=== PATIENT | female | born 1950 | race Caucasian/White ===

== ENCOUNTER → 2017-10-08 | Outpatient (CLI) | payer MEDICARE ==
--- NOTE | 2017-10-10 17:35 | ECHOF ---
Referral Reason:Edema R60.9 Shortness of Breath R06.02 MEASUREMENTS -------- HEIGHT: 160.0 cm WEIGHT: 145.1 kg BP: IVSd: 1.4 cm (0.6 - 1.1) LVIDd: 3.5 cm (3.9 - 5.3) LVPWd: 1.4 cm (0.6 - 1.1) IVSs: 1.8 cm LVIDs: 2.5 cm LVPWs: 1.5 cm Ao Diam: 2.8 cm (2.0 - 3.7) AV Cusp: 1.7 cm (1.5 - 2.6) LA Diam: 2.7 cm (2.7 - 3.8) MV EXCURSION: 17.961 mm (> 18.000) MV EF SLOPE: 111 mm/s (70 - 150) EPSS: 0.4 cm MV E Jose: 0.48 m/s MV DecT: 153 ms MV A Jose: 0.72 m/s MV E/A Ratio: 0.66 FINDINGS -------- Sinus rhythm. This was a technically difficult study with suboptimal views. The left ventricular size is normal. There is mild concentric left ventricular hypertrophy. Overa ll left ventricular systolic function is normal with, an EF between 55 - 60 %. The right ventricle is normal in size and function. The left atrium is normal in size. The right atrium is normal in size. 1.5mg of Definity was utilized for enhancement of images The aortic valve was not well visualized. The mitral valve was not well visualized. There is trace mitral regurgitation. Trace tricuspid regurgitation present. The right ventricular systolic pressure, as measured by Dopp ler, is {RVSP}. The pulmonic valve was not well visualized. The aortic root size is normal. There is no pericardial effusion. CONCLUSIONS -------- 1. Sinus rhythm. 2. This was a technically difficult study with suboptimal views. 3. The left ventricular size is normal. 4. There is mild concentric left ventricular hypertrophy. 5. Overall left ventricular systolic function is normal with, an EF between 55 - 60 %. 6. The left atrium is normal in size. 7. Lumason used 8. The aortic valve was not well visualized. 9. There is trace mitral regurgitation. 10. Trace tricuspid regurgitation present. 11. The right ventricular systolic pressure, as measured by Doppler, is {RVSP}. 12. The pulmonic valve was not well visualized. 13. The aortic root size is normal. 14. There is no pericardial effusion. FILTER CLEANER: Stephie Goodwin RDCS
== END | disposition home or self-care (01) ==
LOC: RADECHMAIN 14:36
PROVIDERS: ATTEND Family Medicine
DX: I51.7 Cardiomegaly (principal)
CPT/HCPCS: C8929; Q9950; 93306

== ENCOUNTER 2020-03-17 21:23 | Emergency (ER) | payer MEDICARE ==
[2020-03-17 21:34] VITALS: RESP 22; TEMP 98.1
[2020-03-17] MEDS ORDERED: SODIUM CHLORIDE 0.9% 1,000 ML IV STA (21:42)
[2020-03-17] MEDS ORDERED: KETOROLAC 30 MG/ML 1 ML VIAL IVP STA (21:42)
[2020-03-17] MEDS ORDERED: ONDANSETRON 4 MG/2 ML VIAL IVP STA (21:42)
--- NOTE | 2020-03-17 21:43 | ED ---
Abdominal Pain HPI - General Chief Complaint: Abdominal Pain Stated Complaint: Right flank pain Time Seen by Provider: 03/17/20 21:27 Source: patient, EMS Mode of arrival: EMS Limitations: physical limitation - History of Present Illness Initial Comments: Patient is a 69-year-old female presenting to emergency with a chief complaint of flank pain. Patient reports this was a sudden onset of bilateral flank pain that started early this point. Patient states by 10 AM, the pain was only localized to the right flank region. Patient reports the pain is sharp in nature and constant. She denies a history of kidney stones. She does report nausea with multiple episodes of nonbloody, nonbilious vomiting. She denies any night sweats or chills. Denies any cough chest pain or shortness of breath. She denies any hematuria, hematochezia or melena. She does report decreased urine output but states that is due to the constant vomiting today. - Related Data Home Medications Medication Instructions Recorded Confirmed No Known Home Medications 03/17/20 03/17/20 Allergies Allergy/AdvReac Type Severity Reaction Status Date / Time No Known Allergies Allergy Verified 03/17/20 23:00 Review of Systems ROS Statement: Those systems with pertinent positive or pertinent negative responses have been documented in the HPI. ROS Other: All systems not noted in ROS Statement are negative. Past Medical History Past Medical History: Hypertension Additional Past Medical History / Comment(s): sciatic nerve History of Any Multi-Drug Resistant Organisms: None Reported Past Surgical History: Cholecystectomy Past Psychological History: No Psychological Hx Reported Smoking Status: Never smoker Past Alcohol Use History: None Reported Past Drug Use History: None Reported General Exam Limitations: physical limitation General appearance: alert, in no apparent distress, obese Head exam: Present: atraumatic, normocephalic, normal inspection Eye exam: Present: normal appearance, PERRL, EOMI Pupils: Present: normal accommodation ENT exam: Present: normal exam, normal oropharynx, mucous membranes moist, TM's normal bilaterally, normal external ear exam Neck exam: Present: normal inspection, full ROM. Absent: tenderness Respiratory exam: Present: normal lung sounds bilaterally. Absent: respiratory distress, wheezes, rales Cardiovascular Exam: Present: regular rate, normal rhythm, normal heart sounds GI/Abdominal exam: Present: soft, tenderness (Right flank region tenderness), normal bowel sounds. Absent: other (Negative McBurney point tenderness. Negative Haney sign.) Extremities exam: Present: normal inspection, full ROM, normal capillary refill. Absent: tenderness Back exam: Present: normal inspection, full ROM, tenderness, CVA tenderness (R) Neurological exam: Present: alert, oriented X3 Psychiatric exam: Present: normal affect, normal mood Skin exam: Present: warm, dry, intact, normal color. Absent: rash Course Vital Signs 03/17/20 03/17/20 21:26 23:12 Temperature 98.1 F Pulse Rate 69 84 Respiratory 22 22 Rate Blood Pressure 181/81 177/86 O2 Sat by Pulse 95 95 Oximetry Medical Decision Making - Medical Decision Making Patient is 69-year-old female presenting to the emergency room with a chief complaint of abdominal pain. On exam patient has right CVA tenderness. UA shows positive blood red blood cells. CT abdomen and pelvis without contrast reveals a 2 mm obstructing stone in the right UVJ with mild hydronephrosis and hydroureter. Patient advised to follow-up with a urologist. Will be sent home with Tylenol 3 starter pack. Also given Zofran for home. Patient advised to drink lots of fluids. Will be discharged with a prescription for Flomax. Pain is under control. Patient given fluids and antiemetics. Patient feels much better. She was advised to follow-up with urologist. Return to emergency department if symptoms worsen. Case discussed with physician. - Lab Data Result diagrams: 03/17/20 22:01 03/17/20 22:01 Lab Results 03/17/20 03/17/20 03/17/20 Range/Units 21:54 22:01 22:01 WBC 11.5 H (3.8-10.6) k/uL RBC 5.53 H (3.80-5.40) m/uL Hgb 16.2 H (11.4-16.0) gm/dL Hct 49.6 H (34.0-46.0) % MCV 89.7 (80.0-100.0) fL MCH 29.3 (25.0-35.0) pg MCHC 32.7 (31.0-37.0) g/dL RDW 14.3 (11.5-15.5) % Plt Count 236 (150-450) k/uL Neutrophils % 85 % Lymphocytes % 10 % Monocytes % 4 % Eosinophils % 1 % Basophils % 0 % Neutrophils # 9.8 H (1.3-7.7) k/uL Lymphocytes # 1.2 (1.0-4.8) k/uL Monocytes # 0.4 (0-1.0) k/uL Eosinophils # 0.1 (0-0.7) k/uL Basophils # 0.0 (0-0.2) k/uL Sodium 138 (137-145) mmol/L Potassium 3.8 (3.5-5.1) mmol/L Chloride 108 H (98-107) mmol/L Carbon Dioxide 21 L (22-30) mmol/L Anion Gap 9 mmol/L BUN 23 H (7-17) mg/dL Creatinine 1.35 H (0.52-1.04) mg/dL Est GFR (CKD-EPI)AfAm 47 (>60 ml/min/1.73 sqM) Est GFR (CKD-EPI)NonAf 41 (>60 ml/min/1.73 sqM) Glucose 160 H (74-99) mg/dL Calcium 9.4 (8.4-10.2) mg/dL Total Bilirubin 2.1 H (0.2-1.3) mg/dL AST 48 H (14-36) U/L ALT 27 (4-34) U/L Alkaline Phosphatase 89 (38-126) U/L Total Protein 7.2 (6.3-8.2) g/dL Albumin 4.2 (3.5-5.0) g/dL Urine Color Light Yellow Urine Appearance Clear (Clear) Urine pH 5.5 (5.0-8.0) Ur Specific [place] 1.009 (1.001-1.035) Urine Protein Negative (Negative) Urine Glucose (UA) Negative (Negative) Urine Ketones 1+ H (Negative) Urine Blood Moderate H (Negative) Urine Nitrite Negative (Negative) Urine Bilirubin Negative (Negative) Urine Urobilinogen <2.0 (<2.0) mg/dL Ur Leukocyte Esterase Negative (Negative) Urine RBC 51 H (0-5) /hpf Urine WBC 1 (0-5) /hpf Urine Bacteria Rare H (None) /hpf Urine Mucus Occasional H (None) /hpf Disposition Clinical Impression: Renal stone, Hydronephrosis, Right flank pain Disposition: HOME SELF-CARE Condition: Stable Instructions (If sedation given, give patient instructions): Abdominal Pain (ED) Additional Instructions: Take prescribed medication as directed. Follow with primary care. Return to emergency department if symptoms worsen. Is patient prescribed a controlled substance at d/c from ED?: No Referrals: Arash Paniagua DO [Primary Care Provider] - 1-2 days Time of Disposition: 23:42
[2020-03-17 22:10] LABS: Basophils % (A) 0 %; Eosinophils # (A) 0.1 k/uL (0-0.7); Eosinophils % (A) 1 %; HCT 49.6 % (34.0-46.0); HGB 16.2 gm/dL (11.4-16.0); Lymphocytes # (A) 1.2 k/uL (1.0-4.8); Lymphocytes % (A) 10 %; MCH 29.3 pg (25.0-35.0); MCHC 32.7 g/dL (31.0-37.0); MCV 89.7 fL (80.0-100.0); Mean Platelet Volume 8.2; Monocytes # (A) 0.4 k/uL (0-1.0); Monocytes % (A) 4 %; Neutrophils # (A) 9.8 k/uL (1.3-7.7); Neutrophils % (A) 85 %; Platelet Count 236 k/uL (150-450); RBC 5.53 m/uL (3.80-5.40); RDW 14.3 % (11.5-15.5); WBC 11.5 k/uL (3.8-10.6)
[2020-03-17 22:11] LABS: Appearance,Urine Clear (Clear); Bacteria,Urine Rare /hpf; Bilirubin,Urine Negative (Negative); Blood,Urine Moderate (Negative); Color,Urine Light Yellow; Glucose,Urine (UA) Negative (Negative); Ketones,Urine 1+ (Negative); Leukocyte Esterase,Urine Negative (Negative); Mucus,Urine Occasional /hpf; Nitrite,Urine Negative (Negative); PH, Urine 5.5 (5.0-8.0); Protein,Urine Negative (Negative); RBC,Urine 51 /hpf (0-5); Specific Gravity,Urine 1.009 (1.001-1.035); Urobilinogen,Urine <2.0 mg/dL (<2.0); WBC,Urine 1 /hpf (0-5)
[2020-03-17 22:21] LABS: Albumin 4.2 g/dL (3.5-5.0); Calcium 9.4 mg/dL (8.4-10.2); Potassium 3.8 mmol/L (3.5-5.1); Total Bilirubin 2.1 mg/dL (0.2-1.3); Total Protein 7.2 g/dL (6.3-8.2)
[2020-03-17 23:14] VITALS: BP 177/86; PULSE 84
--- NOTE | 2020-03-17 23:32 | CT ---
EXAMINATION TYPE: CT abdomen pelvis wo con DATE OF EXAM: 03/17/2020 COMPARISON: None HISTORY: right flank pain CT DLP: 1515.4 mGycm Automated exposure control for dose reduction was used. Images obtained from the diaphragm to the floor the pelvis without contrast. There is some mild atelectasis at the right posterior lung base. Exam limited by patient's size. Hear t size is normal. There is no pericardial effusion. Liver shows no focal defect. There are clips from cholecystectomy. Spleen is intact. Stomach is intact. There is no evidence of pancreatic mass. There is no adrenal mass. There is right-sided hydronephrosis and hydroureter. There is 2 mm calculus in the distal right urete r at the ureterovesical junction. There is right side mild perinephric edema. There are multiple calc emily in the posterior lower pole right kidney. These measure up to 7 mm. Left kidney shows no sign of a calculus. There is no retroperitoneal adenopathy. The appendix appears normal. There are multiple sigmoid diverticula. There is no sign of diverticulitis. Bladder distends smoothly . There is no inguinal hernia. There is no free fluid in the pelvis. Uterus is anteverted. There is m ultilevel spondylotic changes in the lumbar spine. There is vacuum disc phenomenon. There is no lumba r compression fracture. The bony pelvis appears intact. Hip joints appear intact. There is no mesenteric edema. There is no ascites or free air. There is no evidence of bowel obstruct ion. There is ventral hernia in the midline abdomen slightly to the left side that contains fat and m easures almost 3 cm. Umbilicus is not seen. impression Obstructing small calculus at the right ureterovesical junction with right-sided hydronephrosis and h ydroureter. Perinephric edema. Numerous calculi in the lower pole right kidney. Sigmoid diverticulosis without diverticulitis.
[2020-03-17] MEDS ORDERED: ACET/COD 300 MG/30 MG STARTER PACK 6 TAB BTL PO STA (23:43)
[2020-03-17] MEDS ORDERED: ONDANSETRON 4 MG ODT STARTER PACK 2 TAB BTL PO STA (23:44)
== END 2020-03-17 23:57 | disposition home or self-care (01) ==
LOC: EC 21:23
DX: N13.2 Hydronephrosis with renal and ureteral calculous obstruction (principal); Z90.49 Acquired absence of other specified parts of digestive tract
CPT/HCPCS: 36415; 80053; 85025; 81001; 74176; 99284; 96374; 96375; 96361; J2405; J1885; S0119

== ENCOUNTER 2020-07-17 21:11 | Emergency (ER) | payer MEDICARE ==
[2020-07-17] MEDS ORDERED: MORPHINE SULFATE 4 MG/ML SYRINGE IM STA (21:45)
[2020-07-17] MEDS ORDERED: ORPHENADRINE 30 MG/ML 2 ML VIAL IM STA (21:45)
--- NOTE | 2020-07-17 22:15 | XR ---
EXAMINATION TYPE: XR Hip LT and AP Pelvis DATE OF EXAM: 07/17/2020 COMPARISON: None HISTORY: Thigh pain TECHNIQUE: 3 views FINDINGS: Pelvic ring is intact. Proximal left femur and hip joint appear intact. There is no sign of dysplasia. Sacroiliac joints are intact. IMPRESSION: Negative pelvis and left hip exam. No fracture.
[2020-07-17 22:34] VITALS: RESP 18
--- NOTE | 2020-07-17 22:57 | ED ---
Lower Extremity Injury HPI - General Chief Complaint: Extremity Injury, Lower Stated Complaint: Lt leg pain Time Seen by Provider: 07/17/20 21:24 Source: patient, EMS Mode of arrival: EMS Limitations: no limitations - History of Present Illness Initial Comments: 70-year-old female patient presents to the emergency department today for evaluation of left lateral thigh pain. Patient states that she started to have pain to the left groin and then noticed the pain is radiating to the left upper lateral thigh. Denies any known injury. States the pain worsens when she tries to move the leg. States she is having some intermittent twinges of pain in her lower back which is not new for her. States she has had sciatica in the past and this feels different. Denies any rash, fever, or chills. Denies history of similar symptoms. Denies any swelling in the leg. Denies any shortness of breath. Denies history of DVT. Patient denies any recent rash, cough, chest pain, abdominal pain, nausea, vomiting, diarrhea, constipation, back pain, numbness, tingling, dizziness, weakness, hematuria, dysuria, urinary urgency, urinary frequency, headache, visual changes, or any other complaints. - Related Data Previous Rx's Medication Instructions Recorded Ondansetron Odt [Zofran Odt] 4 mg PO Q8HR PRN #10 tab 03/17/20 Tamsulosin [Flomax] 0.4 mg PO DAILY #7 cap 03/17/20 Cyclobenzaprine [Flexeril] 10 mg PO TID #15 tab 07/17/20 Ibuprofen [Motrin] 600 mg PO Q8HR PRN #30 tab 07/17/20 Allergies Allergy/AdvReac Type Severity Reaction Status Date / Time No Known Allergies Allergy Verified 03/17/20 23:00 Review of Systems ROS Statement: Those systems with pertinent positive or pertinent negative responses have been documented in the HPI. ROS Other: All systems not noted in ROS Statement are negative. Past Medical History Past Medical History: Hypertension Additional Past Medical History / Comment(s): sciatic nerve History of Any Multi-Drug Resistant Organisms: None Reported Past Surgical History: Cholecystectomy Past Psychological History: No Psychological Hx Reported Smoking Status: Never smoker Past Alcohol Use History: Rare Past Drug Use History: None Reported General Exam Limitations: no limitations General appearance: alert, in no apparent distress, other (This is a well- developed, well-nourished adult female patient in no acute distress. Vital signs upon presentation are temperature 98.2F, pulse 88, respirations 20, blood pressure 154/80, pulse ox 95% on room air.) Respiratory exam: Present: normal lung sounds bilaterally. Absent: respiratory distress, wheezes, rales, rhonchi, stridor Cardiovascular Exam: Present: regular rate, normal rhythm, normal heart sounds. Absent: systolic murmur, diastolic murmur, rubs, gallop, clicks Neurological exam: Present: alert, oriented X3, CN II-XII intact Psychiatric exam: Present: normal affect, normal mood Skin exam: Present: warm, dry, intact, normal color. Absent: rash Course Vital Signs 07/17/20 07/17/20 21:12 22:20 Temperature 98.2 F Pulse Rate 88 82 Respiratory 20 18 Rate Blood Pressure 154/80 144/81 O2 Sat by Pulse 95 93 L Oximetry Medical Decision Making - Medical Decision Making 70-year-old female patient presented to the emergency department today for evaluation of pain to the left thigh. Physical examination did reveal normal intact skin. Neurovascular status was intact. There are good pulses distally. X-ray of the pelvis and hip are obtained and were negative. Ultrasound of the left leg was obtained and showed no evidence for DVT. We did discuss muscle strain versus spasm as a cause for her symptoms. We will treat with muscle relaxer and anti-inflammatory medication. She is instructed to follow-up with her primary care physician for recheck in 1-2 days. Instructed to follow-up with orthopedics if her symptoms aren't improved over the next week. Return parameters were discussed in detail. She verbalizes understanding and agrees with this plan. - Radiology Data Radiology results: report reviewed, image reviewed Ultrasound of the left lower extremity was obtained. Report is reviewed in its entirety. Impression by Dr. Fonseca shows no evidence of deep vein thrombosis in the left leg. 3 views of the left hip and pelvis are obtained. Report was reviewed in its entirety. Impression by Dr. Fonseca shows negative pelvis and left hip exam. No fracture. Disposition Clinical Impression: Left leg pain Disposition: HOME SELF-CARE Condition: Good Instructions (If sedation given, give patient instructions): Leg Pain (ED) Additional Instructions: Take medications as directed. Consider applying ice or heat to the area to improve symptoms. Follow up with your primary care physician for recheck in 1-2 days. Follow-up with orthopedics if symptoms are not improved over the next week. Return to the emergency department immediately for any new, worsening, or concerning symptoms. Prescriptions: Cyclobenzaprine [Flexeril] 10 mg PO TID #15 tab Ibuprofen [Motrin] 600 mg PO Q8HR PRN #30 tab PRN Reason: Pain Is patient prescribed a controlled substance at d/c from ED?: No Referrals: Arash Paniagua DO [Primary Care Provider] - 1-2 days Time of Disposition: 23:55
--- NOTE | 2020-07-17 23:22 | US ---
EXAMINATION TYPE: US venous doppler duplex LE LT DATE OF EXAM: 07/17/2020 11:11 PM COMPARISON: NONE CLINICAL HISTORY: Left proximal thigh pain. Left leg pain SIDE PERFORMED: Left TECHNIQUE: The lower extremity deep venous system is examined utilizing real time linear array sonog chant[place] with graded compression, doppler sonography and color-flow sonography. VESSELS IMAGED: Common Femoral Vein Deep Femoral Vein Greater Saphenous Vein * Femoral Vein Popliteal Vein Small Saphenous Vein * Proximal Calf Veins (* superficial vessels) Left Leg: Negative for DVT, left EIV and GSV not visualized due to pt morbid obesity IMPRESSION: No evidence of deep vein thrombosis in the left leg.
[2020-07-17] MEDS ORDERED: HYDROmorphone 0.5 MG/0.5 ML SYRINGE IM STA (23:55)
[2020-07-17] MEDS ORDERED: KETOROLAC 15 MG/ML 1 ML VIAL IM STA (23:55)
[2020-07-17] MEDS ORDERED: ACET/COD 300 MG/30 MG STARTER PACK 6 TAB BTL PO STA (23:55)
[2020-07-17] MEDS ORDERED: CYCLOBENZAPRINE 10MG STARTER 3 TAB BTL PO STA (23:55)
[2020-07-18 00:18] VITALS: BP 138/92; PULSE 85; TEMP 98.4
== END 2020-07-18 00:15 | disposition home or self-care (01) ==
LOC: EC 21:11
DX: M79.652 Pain in left thigh (principal); M54.5 Low back pain; Z90.49 Acquired absence of other specified parts of digestive tract
CPT/HCPCS: 73502; 93971; 99284; 96372 ×4; J2270; J2360; J1885; J1170

== ENCOUNTER → 2020-07-26 | Outpatient (CLI) | payer MEDICARE ==
--- NOTE | 2020-07-26 11:28 | XR ---
EXAMINATION TYPE: XR lumbosacral spine min 4V DATE OF EXAM: 07/26/2020 CLINICAL HISTORY: pain COMPARISON: NONE TECHNIQUE: Frontal, lateral, and oblique images of the lumbar spine are obtained. FINDINGS: There are 5 lumbar type vertebral bodies identified. The lumbar spine shows satisfactory alignment without evidence of acute fracture or dislocation. Vertebral body heights are within normal limits. Vacuum disks noted with spondylosis and subchondral sclerosis. Facet joint arthropathy. The overlying soft tissue appears unremarkable. IMPRESSION: No acute fracture or dislocation is seen in the lumbar spine.ICD 10 NO FRACTURE, INITIAL EVALUATION
== END | disposition home or self-care (01) ==
LOC: RADXRYALE 10:59
PROVIDERS: ATTEND Physician Assistant Medical
DX: M54.42 Lumbago with sciatica, left side (principal)
CPT/HCPCS: 72110

== ENCOUNTER → 2021-01-26 | Outpatient (CLI) | payer MEDICARE ==
--- NOTE | 2021-01-26 14:11 | XR ---
EXAMINATION TYPE: XR chest 2V DATE OF EXAM: 01/26/2021 COMPARISON: NONE HISTORY: Shortness of breath, history of morbid obesity TECHNIQUE: Frontal and lateral views of the chest are obtained. FINDINGS: There is no focal air space opacity, pleural effusion, or pneumothorax seen. The cardiac silhouette size is within normal limits with atherosclerotic and slightly ectatic thoracic aorta. Mul tilevel spurring in the mid to lower thoracic spine is present. IMPRESSION: No acute cardiopulmonary process.
== END | disposition home or self-care (01) ==
LOC: RADXRYALE 13:47
PROVIDERS: ATTEND Physician Assistant Medical
DX: R06.02 Shortness of breath (principal); E66.01 Morbid (severe) obesity due to excess calories
CPT/HCPCS: 71046

== ENCOUNTER 2021-04-25 02:29 | Emergency (ER) | payer MEDICARE ==
[2021-04-25] MEDS ORDERED: MORPHINE SULFATE 4 MG/ML SYRINGE IV STA (03:13)
[2021-04-25] MEDS ORDERED: SODIUM CHLORIDE 0.9% 1,000 ML IV STA (03:13)
--- NOTE | 2021-04-25 03:17 | ED ---
Abdominal Pain HPI - General Chief Complaint: Urogenital Stated Complaint: Kidney Stones Time Seen by Provider: 04/25/21 02:33 Source: EMS Mode of arrival: EMS Limitations: no limitations - Related Data Previous Rx's Medication Instructions Recorded Ondansetron Odt [Zofran Odt] 4 mg PO Q8HR PRN #10 tab 03/17/20 Tamsulosin [Flomax] 0.4 mg PO DAILY #7 cap 03/17/20 Cyclobenzaprine [Flexeril] 10 mg PO TID #15 tab 07/17/20 Ibuprofen [Motrin] 600 mg PO Q8HR PRN #30 tab 07/17/20 Allergies Allergy/AdvReac Type Severity Reaction Status Date / Time No Known Allergies Allergy Verified 04/25/21 03:01 Review of Systems ROS Statement: Those systems with pertinent positive or pertinent negative responses have been documented in the HPI. ROS Other: All systems not noted in ROS Statement are negative. Past Medical History Past Medical History: Hypertension Additional Past Medical History / Comment(s): sciatic nerve History of Any Multi-Drug Resistant Organisms: None Reported Past Surgical History: Cholecystectomy Past Psychological History: No Psychological Hx Reported Smoking Status: Never smoker Past Alcohol Use History: Rare Past Drug Use History: None Reported General Exam Limitations: no limitations Course Vital Signs 04/25/21 02:59 Temperature 98.5 F Pulse Rate 103 H Respiratory 20 Rate Blood Pressure 159/81 O2 Sat by Pulse 91 L Oximetry Medical Decision Making - Lab Data Result diagrams: 04/25/21 03:17 04/25/21 03:17 Lab Results 04/25/21 04/25/21 04/25/21 Range/Units 03:17 03:17 03:17 WBC 10.6 (3.8-10.6) k/uL RBC 5.08 (3.80-5.40) m/uL Hgb 15.5 (11.4-16.0) gm/dL Hct 46.9 H (34.0-46.0) % MCV 92.3 (80.0-100.0) fL MCH 30.5 (25.0-35.0) pg MCHC 33.0 (31.0-37.0) g/dL RDW 14.5 (11.5-15.5) % Plt Count 245 (150-450) k/uL MPV 8.9 Neutrophils % 86 % Lymphocytes % 8 % Monocytes % 4 % Eosinophils % 1 % Basophils % 0 % Neutrophils # 9.1 H (1.3-7.7) k/uL Lymphocytes # 0.9 L (1.0-4.8) k/uL Monocytes # 0.4 (0-1.0) k/uL Eosinophils # 0.1 (0-0.7) k/uL Basophils # 0.0 (0-0.2) k/uL Sodium 135 L (137-145) mmol/L Potassium 4.9 (3.5-5.1) mmol/L Chloride 107 (98-107) mmol/L Carbon Dioxide 19 L (22-30) mmol/L Anion Gap 9 mmol/L BUN 20 H (7-17) mg/dL Creatinine 0.62 (0.52-1.04) mg/dL Est GFR (CKD-EPI)AfAm >90 (>60 ml/min/1.73 sqM) Est GFR (CKD-EPI)NonAf >90 (>60 ml/min/1.73 sqM) Glucose 175 H (74-99) mg/dL Calcium 9.2 (8.4-10.2) mg/dL Total Bilirubin 2.3 H (0.2-1.3) mg/dL AST 91 H (14-36) U/L ALT 25 (4-34) U/L Alkaline Phosphatase 75 (38-126) U/L Total Protein 7.4 (6.3-8.2) g/dL Albumin 4.2 (3.5-5.0) g/dL Amylase 55 (30-110) U/L Lipase 47 (23-300) U/L Urine Color Yellow Urine Appearance Cloudy H (Clear) Urine pH 5.5 (5.0-8.0) Ur Specific [place] 1.011 (1.001-1.035) Urine Protein 1+ H (Negative) Urine Glucose (UA) Trace H (Negative) Urine Ketones Negative (Negative) Urine Blood Large H (Negative) Urine Nitrite Negative (Negative) Urine Bilirubin Negative (Negative) Urine Urobilinogen <2.0 (<2.0) mg/dL Ur Leukocyte Esterase Negative (Negative) Urine RBC 155 H (0-5) /hpf Urine WBC 8 H (0-5) /hpf Ur Squamous Epith Cells 1 (0-4) /hpf Amorphous Sediment Rare H (None) /hpf Urine Bacteria Rare H (None) /hpf Hyaline Casts 21 H (0-2) /lpf Urine Mucus Moderate H (None) /hpf Disposition Clinical Impression: Right kidney stone, Hematuria Disposition: HOME SELF-CARE Condition: Good Instructions (If sedation given, give patient instructions): Kidney Stones (ED), Hematuria (ED) Is patient prescribed a controlled substance at d/c from ED?: No Referrals: None,Stated [Primary Care Provider] - 1-2 days
[2021-04-25 03:31] LABS: Basophils % (A) 0 %; Eosinophils # (A) 0.1 k/uL (0-0.7); Eosinophils % (A) 1 %; HCT 46.9 % (34.0-46.0); HGB 15.5 gm/dL (11.4-16.0); Lymphocytes # (A) 0.9 k/uL (1.0-4.8); Lymphocytes % (A) 8 %; MCH 30.5 pg (25.0-35.0); MCV 92.3 fL (80.0-100.0); Mean Platelet Volume 8.9; Monocytes # (A) 0.4 k/uL (0-1.0); Monocytes % (A) 4 %; Neutrophils # (A) 9.1 k/uL (1.3-7.7); Neutrophils % (A) 86 %; Platelet Count 245 k/uL (150-450); RBC 5.08 m/uL (3.80-5.40); RDW 14.5 % (11.5-15.5); WBC 10.6 k/uL (3.8-10.6)
[2021-04-25 03:48] LABS: ALT 25 U/L (4-34); AST 91 U/L (14-36); African American GFR (CKD) >90 (>60 ml/min/1.73 sqM); Albumin 4.2 g/dL (3.5-5.0); Alkaline Phosphatase 75 U/L (38-126); Amylase 55 U/L (30-110); Anion Gap 9 mmol/L; Blood Urea Nitrogen 20 mg/dL (7-17); Calcium 9.2 mg/dL (8.4-10.2); Carbon Dioxide 19 mmol/L (22-30); Chloride 107 mmol/L (98-107); Glucose 175 mg/dL (74-99); Lipase 47 U/L (23-300); Non-African American GFR(CKD) >90 (>60 ml/min/1.73 sqM); Potassium 4.9 mmol/L (3.5-5.1); Sodium 135 mmol/L (137-145); Total Bilirubin 2.3 mg/dL (0.2-1.3); Total Protein 7.4 g/dL (6.3-8.2)
[2021-04-25 04:14] LABS: Amorphous Sediment,Urine Rare /hpf; Appearance,Urine Cloudy (Clear); Bacteria,Urine Rare /hpf; Bilirubin,Urine Negative (Negative); Blood,Urine Large (Negative); Color,Urine Yellow; Glucose,Urine (UA) Trace (Negative); Hyaline Casts,Urine 21 /lpf (0-2); Ketones,Urine Negative (Negative); Leukocyte Esterase,Urine Negative (Negative); Mucus,Urine Moderate /hpf; Nitrite,Urine Negative (Negative); PH, Urine 5.5 (5.0-8.0); Protein,Urine 1+ (Negative); RBC,Urine 155 /hpf (0-5); Specific Gravity,Urine 1.011 (1.001-1.035); Squamous Epithelial Cell,Urine 1 /hpf (0-4); Urobilinogen,Urine <2.0 mg/dL (<2.0); WBC,Urine 8 /hpf (0-5)
--- NOTE | 2021-04-25 04:21 | CT ---
EXAMINATION TYPE: CT abdomen pelvis wo con DATE OF EXAM: 04/25/2021 COMPARISON: 04/25/2021 HISTORY: Abd Pain CT DLP: 2420 mGycm Automated exposure control for dose reduction was used. There is some interstitial infiltrate left lower lobe. There is no pericardial effusion. Exam limited by patient's size. Liver spleen stomach pancreas appear intact. Bile ducts are not dilated. There ar e clips from cholecystectomy. There is no adrenal mass. Kidneys have normal size. There are multiple right-sided renal calculi. The ureters are not dilated. Bladder distends smoothly. There is no retroperitoneal adenopathy. Abdomina l aorta is atheromatous. There is no inguinal hernia. Uterus is anteverted. There is no pelvic mass. There are numerous sigmoid diverticula. There is no diverticulitis. There are scattered diverticula i n the large bowel. The appendix appears normal. The lumbar vertebra have normal alignment. There is multilevel lumbar vacuum disc. There is disc spac e narrowing and spur formation. There is no compression fracture. The bony pelvis is intact. There is no evidence of hip fracture. IMPRESSION: Multiple right-sided renal calculi. No renal obstruction. Normal appendix. Colonic diverticulosis without diverticulitis.
[2021-04-25] MEDS ORDERED: TAMSULOSIN 0.4 MG CAP.ER.24H PO STA (04:30)
[2021-04-25] MEDS ORDERED: KETOROLAC 15 MG/ML 1 ML VIAL IVP STA (04:30)
[2021-04-25] MEDS ORDERED: IPRATROPIUM-ALBUTEROL 3 ML NEB INHALATION STA (04:30)
--- NOTE | 2021-04-25 04:48 | XR ---
EXAMINATION TYPE: XR chest 1V portable DATE OF EXAM: 04/25/2021 COMPARISON: 01/26/2021 HISTORY: Short of breath. Cough TECHNIQUE: Single view FINDINGS: There is some mild atelectasis at the lung bases. There is no heart failure. Heart size is fairly normal. Bony thorax is intact. There are no hilar masses. IMPRESSION: There is new mild subsegmental atelectasis at the lung bases compared to old exam.
[2021-04-25 06:20] VITALS: RESP 18
[2021-04-25 07:01] VITALS: BP 141/72; PULSE 102; TEMP 98
== END 2021-04-25 06:45 | disposition home or self-care (01) ==
LOC: EC 02:29
DX: N20.0 Calculus of kidney (principal); I10 Essential (primary) hypertension
CPT/HCPCS: 36415; 71045; 74176; 80053; 81001; 82150; 83690; 85025; 94640; 96361; 96374; 96375; 99284

== ENCOUNTER 2021-10-04 18:40 | Inpatient (IN) | payer MEDICARE ==
[2021-10-04] MEDS ORDERED: Alteplase PER PHARMACY Stroke 1 EACH MISC MISCELLANE PRN (18:46)
[2021-10-04] MEDS ORDERED: ALTEPLASE BOLUS FOR STROKE 9 MG in EMPTY SYRINGE 1 SYR IV STA (18:48)
[2021-10-04] MEDS ORDERED: ALTEPLASE 81 MG in EMPTY BAG 1 BAG IV STA (18:48)
[2021-10-04 18:49] LABS: Glucose,Whole Blood 122 mg/dL (75-99)
--- NOTE | 2021-10-04 18:52 | ED ---
General Adult HPI - General Stated complaint: Possible Stroke Time Seen by Provider: 10/04/21 18:45 Source: RN notes reviewed, old records reviewed - History of Present Illness Initial comments: Patient is a 71-year-old female with past medical history remarkable for hypertension, lower extremity edema who presents emergency Department complaining of strokelike symptoms. Time of onset was at approximate 5:15 pm. Is currently 6:40 pm. Symptoms are left-sided weakness and sensory deficits. States she was at home when she bent over to pick something up and noted she is weak on the left side. Denies any chest pain, shortness breath, abdominal pain. States she is cold. Denies any headache, blurry vision. Denies any other acute complaints at this time. Denies chest pain, shortness of breath, abdominal pain. She denies any history of intracranial hemorrhage, bleed. She is not on blood thinners. She has no known history of strokes. States she stopped taking her Lasix medication earlier this week her last week as she believes it wasn't working. Does endorse worsening bilateral lower extremity edema. Denies any shortness of breath. Has no other acute length this time. Presents as a stroke activation, Code alteplase. - Related Data Home Medications Medication Instructions Recorded Confirmed No Known Home Medications 10/04/21 10/04/21 Allergies Allergy/AdvReac Type Severity Reaction Status Date / Time No Known Allergies Allergy Verified 10/04/21 20:01 Review of Systems ROS Statement: Those systems with pertinent positive or pertinent negative responses have been documented in the HPI. Review of Systems: CONST: Denies fever EYES: Denies blurry vision ENT: Denies nasal congestion C/V: Denies Chest pain RESP: Denies shortness of breath GI: Denies abdominal pain : Denies dysuria SKIN: Denies rash. MSK: Denies joint pain. NEURO: Endorses left-sided sensory deficits, left-sided weakness ROS Other: All systems not noted in ROS Statement are negative. Past Medical History Past Medical History: Hypertension Additional Past Medical History / Comment(s): sciatic nerve History of Any Multi-Drug Resistant Organisms: None Reported Past Surgical History: Cholecystectomy Past Psychological History: No Psychological Hx Reported Smoking Status: Never smoker Past Alcohol Use History: Rare Past Drug Use History: None Reported General Exam - General Exam Comments Initial Comments: General: Appears in no acute distress. HEAD: Normal with no signs of head trauma. EYES: PERRLA, EOMI, conjunctiva normal, no discharge. ENT: Hearing grossly intact, normal oropharynx. RESPIRATORY: Clear breath sounds bilaterally. No wheezes, rales, or rhonchi. C/V: Regular rate and rhythm. S1 and S2 auscultated. Significant bilateral lower extremity pitting edema approximately 3+, it is symmetrical and chronic. Peripheral pulses are 2+ and intact throughout. ABD: Abd is soft, nontender, nondistended EXT: Normal range of motion, no obvious deformity SKIN: No rashes or lesions observed on exposed skin. NEURO: Alert and oriented 4. Cranial nerves II-12 are intact. NIH is approximately 4, with 1 point for sensory deficits, 1 point for weakness and both lower extremities. Patient also has left upper extremity drift for 1 point. Last known well was at 5:15 PM, which is within the four and half-hour symptom onset window for TPA. Course Vital Signs 10/04/21 10/04/21 10/04/21 19:04 19:07 19:13 Temperature 97.9 F Pulse Rate 100 88 83 Respiratory 20 16 16 Rate Blood Pressure 171/95 171/95 150/100 O2 Sat by Pulse 96 95 93 L Oximetry 10/04/21 10/04/21 10/04/21 19:18 19:23 19:31 Temperature Pulse Rate 81 80 78 Respiratory 20 20 20 Rate Blood Pressure 142/69 145/79 135/74 O2 Sat by Pulse 95 95 95 Oximetry 10/04/21 10/04/21 10/04/21 19:36 19:41 19:46 Temperature Pulse Rate 79 79 77 Respiratory 16 16 18 Rate Blood Pressure 135/74 135/74 140/79 O2 Sat by Pulse 95 95 96 Oximetry Medical Decision Making - Medical Decision Making Based on the patient's presentation and physical exam, I'm concerned for acute CVA. Code alteplase was called. initial accucheck was within normal limits. Patient was in the hallway, stroke scale is calculated, and taken to the CT imaging. CT brain did not reveal any signs of acute intracranial hemorrhage. I discussed the cartilage indications as well as the risks of giving TPA with the patient. She did consent to receiving TPA. She is no contraindications for TPA. Last known well was 5:15 PM. TPA was started at 7:06 PM. Remainder the labs are still pending at this time. I spoke with Dr. Barnes the neurointerventionalist was in agreement this plan. He will review the images as well. Patient's EKG showed mild sinus tachycardia. No signs of acute ischemia. CTA imaging of the brain returned at this time and showed no signs of dissection. It is a negative CT angiogram of the neck and brain. Laboratory studies were remarkable for a mild elevated hemoglobin 17.0. Remainder of the labs are relatively unremarkable, with a very mildly elevated bilirubin of 1.7. Troponin is within normal limits. Blood Sugar, as indicated above, is within normal limits as well. On reevaluation, patient's symptoms are unchanged, NIH remains ~4. Patient's daughter presents emergency department at this time and corroborates her story. Patient will be admitted to the ICU with neurology on as a consult. They were in agreement this plan. At this time I also spoke with Dr. Shi of neuro intervention, who was assisting Dr. Barnes with reviewing the images. He reviewed both CT and CTA, and showed no acute process. There were negative. He is in agreement with admission to the ICU for medical management at this time. I used the stroke order set to admit the patient to the ICU. I did speak with Dr. Quinones and consulted him, he accepted the patient the ICU. Otherwise spoke with Dr. Barron of neurology, who accepted the patient. They were in agreement with the plan. I spoke with the admitting team, Malou HARRIS of the [facility] who accepted the patient. Patient is admitted under Dr. Cervantes. Patient was therefore admitted in serious condition. - Lab Data Result diagrams: 10/04/21 19:02 10/04/21 19:02 Lab Results 10/04/21 10/04/21 10/04/21 Range/Units 18:44 19:02 19:02 WBC 7.6 (3.8-10.6) k/uL RBC 5.56 H (3.80-5.40) m/uL Hgb 17.0 H (11.4-16.0) gm/dL Hct 52.7 H (34.0-46.0) % MCV 94.6 (80.0-100.0) fL MCH 30.5 (25.0-35.0) pg MCHC 32.2 (31.0-37.0) g/dL RDW 14.7 (11.5-15.5) % Plt Count 207 (150-450) k/uL MPV 7.9 Neutrophils % 77 % Lymphocytes % 15 % Monocytes % 4 % Eosinophils % 3 % Basophils % 0 % Neutrophils # 5.8 (1.3-7.7) k/uL Lymphocytes # 1.2 (1.0-4.8) k/uL Monocytes # 0.3 (0-1.0) k/uL Eosinophils # 0.2 (0-0.7) k/uL Basophils # 0.0 (0-0.2) k/uL PT 10.0 (9.0-12.0) sec INR 0.9 (<1.2) APTT 21.0 L (22.0-30.0) sec Sodium (137-145) mmol/L Potassium (3.5-5.1) mmol/L Chloride (98-107) mmol/L Carbon Dioxide (22-30) mmol/L Anion Gap mmol/L BUN (7-17) mg/dL Creatinine (0.52-1.04) mg/dL Est GFR (CKD-EPI)AfAm (>60 ml/min/1.73 sqM) Est GFR (CKD-EPI)NonAf (>60 ml/min/1.73 sqM) Glucose (74-99) mg/dL POC Glucose (mg/dL) 122 H (75-99) mg/dL POC Glu Gluing Pressman ID Willing, Estrella Calcium (8.4-10.2) mg/dL Total Bilirubin (0.2-1.3) mg/dL AST (14-36) U/L ALT (4-34) U/L Alkaline Phosphatase (38-126) U/L Troponin I (0.000-0.034) ng/mL NT-Pro-B Natriuret Pep pg/mL Total Protein (6.3-8.2) g/dL Albumin (3.5-5.0) g/dL 10/04/21 10/04/21 10/04/21 Range/Units 19:02 19:02 19:02 WBC (3.8-10.6) k/uL RBC (3.80-5.40) m/uL Hgb (11.4-16.0) gm/dL Hct (34.0-46.0) % MCV (80.0-100.0) fL MCH (25.0-35.0) pg MCHC (31.0-37.0) g/dL RDW (11.5-15.5) % Plt Count (150-450) k/uL MPV Neutrophils % % Lymphocytes % % Monocytes % % Eosinophils % % Basophils % % Neutrophils # (1.3-7.7) k/uL Lymphocytes # (1.0-4.8) k/uL Monocytes # (0-1.0) k/uL Eosinophils # (0-0.7) k/uL Basophils # (0-0.2) k/uL PT (9.0-12.0) sec INR (<1.2) APTT (22.0-30.0) sec Sodium 139 (137-145) mmol/L Potassium 4.4 (3.5-5.1) mmol/L Chloride 104 (98-107) mmol/L Carbon Dioxide 25 (22-30) mmol/L Anion Gap 10 mmol/L BUN 18 H (7-17) mg/dL Creatinine 0.65 (0.52-1.04) mg/dL Est GFR (CKD-EPI)AfAm >90 (>60 ml/min/1.73 sqM) Est GFR (CKD-EPI)NonAf >90 (>60 ml/min/1.73 sqM) Glucose 126 H (74-99) mg/dL POC Glucose (mg/dL) (75-99) mg/dL POC Glu Gluing Pressman ID Calcium 9.4 (8.4-10.2) mg/dL Total Bilirubin 1.7 H (0.2-1.3) mg/dL AST 39 H (14-36) U/L ALT 24 (4-34) U/L Alkaline Phosphatase 96 (38-126) U/L Troponin I 0.013 (0.000-0.034) ng/mL NT-Pro-B Natriuret Pep 88 pg/mL Total Protein 7.7 (6.3-8.2) g/dL Albumin 4.2 (3.5-5.0) g/dL - EKG Data -: EKG Interpreted by Me EKG Comments: 12-lead Electrocardiogram Interpretation Note EKG was reviewed and interpreted by myself. 12-lead ECG performed at 1905 is interpreted by me as revealing sinus tachycardia at a rate of 103 beats per minute. Left axis deviation. AK interval is 180 ms, QRS duration is 86 ms, QTc is 442 ms. There is an isolated T-wave inversion in lead V3. There were no ST or T wave abnormalities to suggest myocardial ischemia or injury. R wave progression across the precordium was satisfactory. By my interpretation this EKG is non-diagnostic for acute ischemia. This EKG does have a good deal of baseline artifact. Critical Care Time Critical Care Time: Yes Total Critical Care Time: 35 Critical Care Time: Upon my evaluation, this patient had a high probability of imminent or life-threatening deterioration due to CVA with TPA, which required my direct attention, intervention, and personal management. I have personally provided 35 minutes of critical care time exclusive of time spent on separately billable procedures. Time includes review of laboratory data, radiology results, discussion with consultants, and monitoring for potential decompensation. Interventions were performed as documented in my note. Disposition Clinical Impression: Cerebrovascular accident (CVA), Received intravenous tissue plasminogen activator (tPA) in emergency department Disposition: ADMITTED IP TO THIS HOSP Condition: Serious Referrals: None,Stated [REFERRING] - 1-2 days
--- NOTE | 2021-10-04 19:05 | CT ---
EXAMINATION TYPE: CT brain wo con for TPA DATE OF EXAM: 10/04/2021 COMPARISON: None HISTORY: Facial numbness. CT DLP: 1088.4 mGycm Automated exposure control for dose reduction was used. Images of the brain were obtained without contrast. There is mild cerebral atrophy. There is no mass effect or midline shift. There is no sign of intracr anial hemorrhage. Calvarium is intact. There is some hypodensity in the white matter around the front al horns of the lateral ventricles. IMPRESSION: Mild atrophy. Mild chronic small vessel ischemia. No acute intracranial abnormality.
[2021-10-04 19:06] LABS: Basophils % (A) 0 %; Eosinophils # (A) 0.2 k/uL (0-0.7); Eosinophils % (A) 3 %; HCT 52.7 % (34.0-46.0); Lymphocytes # (A) 1.2 k/uL (1.0-4.8); Lymphocytes % (A) 15 %; MCH 30.5 pg (25.0-35.0); MCHC 32.2 g/dL (31.0-37.0); MCV 94.6 fL (80.0-100.0); Mean Platelet Volume 7.9; Monocytes # (A) 0.3 k/uL (0-1.0); Monocytes % (A) 4 %; Neutrophils # (A) 5.8 k/uL (1.3-7.7); Neutrophils % (A) 77 %; Platelet Count 207 k/uL (150-450); RBC 5.56 m/uL (3.80-5.40); RDW 14.7 % (11.5-15.5); WBC 7.6 k/uL (3.8-10.6)
[2021-10-04 19:14] LABS: ALT 24 U/L (4-34); AST 39 U/L (14-36); African American GFR (CKD) >90 (>60 ml/min/1.73 sqM); Albumin 4.2 g/dL (3.5-5.0); Alkaline Phosphatase 96 U/L (38-126); Anion Gap 10 mmol/L; Blood Urea Nitrogen 18 mg/dL (7-17); Calcium 9.4 mg/dL (8.4-10.2); Carbon Dioxide 25 mmol/L (22-30); Chloride 104 mmol/L (98-107); Glucose 126 mg/dL (74-99); Non-African American GFR(CKD) >90 (>60 ml/min/1.73 sqM); Potassium 4.4 mmol/L (3.5-5.1); Sodium 139 mmol/L (137-145); Total Bilirubin 1.7 mg/dL (0.2-1.3); Total Protein 7.7 g/dL (6.3-8.2)
[2021-10-04 19:22] LABS: INR 0.9 (<1.2)
--- NOTE | 2021-10-04 19:34 | CT ---
EXAMINATION TYPE: CT angio head neck DATE OF EXAM: 10/04/2021 COMPARISON: None HISTORY: Facial numbness. CT DLP: 660.7 mGycm Automated exposure control for dose reduction was used. CONTRAST: Performed with IV Contrast, patient injected with 65 mL of Isovue 370. There are 3-D post processed images. There is normal branching pattern of the great vessels on the aortic arch. There is more than 4 cm an eurysm of the ascending aorta. Proximal ascending aorta not included on the exam. There is no dissect ion. There is arterial flow in both subclavian arteries. There is arterial flow in the common interna l and external carotid arteries bilaterally. There is fairly wide patency of the carotid artery bifur cations. There is significant medial deviation of the common carotid arteries. There is no evidence o f carotid or vertebral artery aneurysm or dissection. There is arterial flow in the vertebral basilar artery system. There is arterial flow in the vertebra l arteries bilaterally. There is arterial flow in the anterior middle and posterior cerebral arteries. There is no mass effec t. I see no evidence of intracranial aneurysm or neovascularity. IMPRESSION: Negative CT angiogram of the neck. Negative CT angiogram of the brain. Aneurysm of the ascending aorta incompletely evaluated.
[2021-10-04] MEDS ORDERED: MORPHINE SULFATE 4 MG/ML SYRINGE IVP STA (19:46)
[2021-10-04] MEDS ORDERED: SODIUM CHLORIDE 0.9% 50 ML MINI-BAG IV ONE (19:48)
--- NOTE | 2021-10-04 20:13 | XR ---
EXAMINATION TYPE: XR chest 1V portable DATE OF EXAM: 10/04/2021 COMPARISON: 04/25/2021 HISTORY: Cough TECHNIQUE: FINDINGS: There is no heart failure nor confluent pneumonic infiltrate. Costophrenic angles are clear there are chest leads. There are no hilar masses. IMPRESSION: No active cardiopulmonary disease. No change.
[2021-10-04 20:27] LABS: Appearance,Urine Clear (Clear); Bilirubin,Urine Negative (Negative); Blood,Urine Small (Negative); Color,Urine Light Yellow; Glucose,Urine (UA) Negative (Negative); Ketones,Urine Negative (Negative); Leukocyte Esterase,Urine Negative (Negative); Mucus,Urine Rare /hpf; Nitrite,Urine Negative (Negative); Protein,Urine Trace (Negative); RBC,Urine 4 /hpf (0-5); Specific Gravity,Urine 1.041 (1.001-1.035); Squamous Epithelial Cell,Urine <1 /hpf (0-4); Urobilinogen,Urine <2.0 mg/dL (<2.0); WBC,Urine 2 /hpf (0-5)
[2021-10-04 20:51] LABS: Glucose,Whole Blood 118 mg/dL (75-99)
[2021-10-05] MEDS: SODIUM CHLORIDE 0.9% 1,000 ML IV SCH ×2 (05:42→06:59)
[2021-10-05 07:02] LABS: ALT 20 U/L (4-34); AST 35 U/L (14-36); African American GFR (CKD) >90 (>60 ml/min/1.73 sqM); Albumin 3.3 g/dL (3.5-5.0); Alkaline Phosphatase 68 U/L (38-126); Anion Gap 5 mmol/L; Blood Urea Nitrogen 14 mg/dL (7-17); Carbon Dioxide 25 mmol/L (22-30); Chloride 108 mmol/L (98-107); Glucose 113 mg/dL (74-99); Non-African American GFR(CKD) >90 (>60 ml/min/1.73 sqM); Sodium 138 mmol/L (137-145); Total Bilirubin 1.8 mg/dL (0.2-1.3); Total Protein 6.4 g/dL (6.3-8.2)
[2021-10-05] MEDS: FUROSEMIDE 10 MG/ML 2 ML VIAL IV SCH ×2 (09:07→22:31)
--- NOTE | 2021-10-05 09:22 | P.HPIM ---
History of Present Illness Present pleasant 71-year-old female came in with complaints of tingling numbness in the left upper yesterday and lower extremity along with some weakness. Patient received TPA. Patient presently doesn't have any focal deficits stevenson ent's strength in the upper limbs both is around 5/5 and lower limbs is around 4/5 patient does have chronic edema which is her chronic venous insufficiency in bilateral lower extremity is for which patient used to take Lasix which she quit taking because it's not working. Patient denied any fever chills headache. Patient had a CT of the head and CT angios the head which showed chronic small vessel ischemia without any acute intracranial abnormality. Denied any speech or vision abnormality. Echocardiogram will be obtained. Neurology was a valid the patient. Lipid panel and globin A1c pending REVIEW OF SYSTEMS: CONSTITUTIONAL: No fever, no malaise, no fatigue. HEENT: No recent visual problems or hearing problems. Denied any sore throat. CARDIOVASCULAR: No chest pain, orthopnea, PND, no palpitations, no syncope. PULMONARY: No shortness of breath, no cough, no hemoptysis. GASTROINTESTINAL: No diarrhea, no nausea, no vomiting, no abdominal pain. NEUROLOGICAL: No headaches. HEMATOLOGICAL: Denies any bleeding or petechiae. GENITOURINARY: Denies any burning micturition, frequency, or urgency. MUSCULOSKELETAL/RHEUMATOLOGICAL: Denies any joint pain, swelling, or any muscle pain. ENDOCRINE: Denies any polyuria or polydipsia. The rest of the 14-point review of systems is negative. PHYSICAL EXAMINATION: GENERAL: The patient is alert and oriented x3, not in any acute distress. Well developed, well nourished. HEENT: Pupils are round and equally reacting to light. EOMI. No scleral icterus. No conjunctival pallor. Normocephalic, atraumatic. No pharyngeal erythema. No thyromegaly. CARDIOVASCULAR: S1 and S2 present. No murmurs, rubs, or gallops. PULMONARY: Chest is clear to auscultation, no wheezing or crackles. ABDOMEN: Soft, nontender, nondistended, normoactive bowel sounds. No palpable organomegaly. MUSCULOSKELETAL: No joint swelling or deformity. EXTREMITIES: No cyanosis, clubbing, bilateral lower extremity edema NEUROLOGICAL: Gross neurological examination did not reveal any focal deficits. Patient does have some chronic bilateral lower extremity weakness with strength of around 4/5 her weakness from stroke completely resolved at this time since he was not examined. SKIN: No rashes. Assessment and plan -Possible cerebral vascular accident involving the left side of the body and right frontoparietal area. Patient received TPA with complete resolution of symptoms. Physical therapy occupational therapy, and neurology will evaluate the patient. Lipid panel, echocardiogram, hemoglobin A1c pending, patient will undergo MRI as well, patient's antiplatelet therapy will be held until repeat CT. -Morbid obesity -Chronic venous insufficiency of bilateral lower extremity without any evidence of congestive heart failure: Patient will be started on IV Lasix for bilateral lower extremity edema. Clinically doesn't appear to have any congestive heart failure at this time. DVT prophylaxis: SCDs as patient received TPA Past Medical History Past Medical History: Hypertension Additional Past Medical History / Comment(s): sciatic nerve History of Any Multi-Drug Resistant Organisms: None Reported Past Surgical History: Cholecystectomy Past Psychological History: No Psychological Hx Reported Smoking Status: Never smoker Past Alcohol Use History: Rare Past Drug Use History: None Reported Medications and Allergies Home Medications Medication Instructions Recorded Confirmed Type No Known Home Medications 10/04/21 10/04/21 History Allergies Allergy/AdvReac Type Severity Reaction Status Date / Time No Known Allergies Allergy Verified 10/04/21 20:01 Physical Exam Vitals: Vital Signs Temp Pulse Pulse Resp BP BP Pulse Ox 10/05/21 08:18 98 10/05/21 08:00 98.2 F 72 16 140/76 96 10/05/21 07:30 78 19 140/76 97 10/05/21 07:00 87 13 138/78 97 10/05/21 06:30 68 14 138/78 96 10/05/21 06:00 71 18 133/77 96 10/05/21 05:30 80 17 133/77 96 10/05/21 05:00 61 11 L 148/79 97 10/05/21 04:30 69 11 L 95 10/05/21 04:00 98.2 F 76 13 135/79 95 10/05/21 03:30 76 12 97 10/05/21 03:00 78 12 143/86 95 10/05/21 02:30 60 11 L 95 10/05/21 02:00 72 23 131/82 97 10/05/21 01:30 65 11 L 95 10/05/21 01:00 60 11 L 128/78 94 L 10/05/21 00:30 70 17 94 L 10/05/21 00:07 80 23 96 10/05/21 00:00 98.2 F 61 11 L 134/77 95 10/04/21 23:45 65 17 134/77 94 L 10/04/21 23:30 58 L 11 L 94 L 10/04/21 23:15 64 13 94 L 10/04/21 23:00 65 12 131/80 92 L 10/04/21 22:45 75 20 95 10/04/21 22:30 79 19 93 L 10/04/21 22:15 85 22 131/80 94 L 10/04/21 22:00 67 14 127/79 92 L 10/04/21 21:45 81 19 127/79 95 10/04/21 21:30 75 16 127/79 95 10/04/21 21:10 75 16 127/79 95 10/04/21 21:00 98.1 F 80 19 127/73 96 10/04/21 20:50 95 19 96 10/04/21 20:49 84 39 H 97 10/04/21 20:37 82 16 138/96 95 10/04/21 20:25 81 16 135/76 95 10/04/21 20:23 98.1 F 79 17 127/79 10/04/21 20:08 80 16 157/87 95 10/04/21 19:46 77 18 140/79 96 10/04/21 19:41 79 16 135/74 95 10/04/21 19:36 79 16 135/74 95 10/04/21 19:31 78 20 135/74 95 10/04/21 19:23 80 20 145/79 95 10/04/21 19:18 81 20 142/69 95 10/04/21 19:13 83 16 150/100 93 L 10/04/21 19:07 88 16 171/95 95 10/04/21 19:04 97.9 F 100 20 171/95 96 Intake and Output 10/04/21 10/05/21 10/05/21 22:59 06:59 14:59 Intake Total 200 800 200 Output Total 100 800 210 Balance 100 0 -10 Intake: IV 200 800 200 Sodium Chloride 0.9% 1, 200 800 200 000 ml @ 100 mls/hr IV . Q10H PACO Rx#:[id number] Output: Urine 100 800 210 Other: Voiding Method Indwelling Catheter Indwelling Catheter Weight 147.418 kg 145 kg Results CBC & Chem 7: 10/04/21 19:02 10/05/21 06:15 Labs: Abnormal Lab Results - Last 24 Hours (Table) 10/04/21 10/04/21 10/04/21 Range/Units 18:44 19:02 19:02 RBC 5.56 H (3.80-5.40) m/uL Hgb 17.0 H (11.4-16.0) gm/dL Hct 52.7 H (34.0-46.0) % APTT 21.0 L (22.0-30.0) sec Chloride (98-107) mmol/L BUN (7-17) mg/dL Glucose (74-99) mg/dL POC Glucose (mg/dL) 122 H (75-99) mg/dL Total Bilirubin (0.2-1.3) mg/dL AST (14-36) U/L Albumin (3.5-5.0) g/dL Ur Specific [place] (1.001-1.035) Urine Protein (Negative) Urine Blood (Negative) Urine Mucus (None) /hpf 10/04/21 10/04/21 10/04/21 Range/Units 19:02 20:21 20:50 RBC (3.80-5.40) m/uL Hgb (11.4-16.0) gm/dL Hct (34.0-46.0) % APTT (22.0-30.0) sec Chloride (98-107) mmol/L BUN 18 H (7-17) mg/dL Glucose 126 H (74-99) mg/dL POC Glucose (mg/dL) 118 H (75-99) mg/dL Total Bilirubin 1.7 H (0.2-1.3) mg/dL AST 39 H (14-36) U/L Albumin (3.5-5.0) g/dL Ur Specific [place] 1.041 H (1.001-1.035) Urine Protein Trace H (Negative) Urine Blood Small H (Negative) Urine Mucus Rare H (None) /hpf 10/05/21 Range/Units 06:15 RBC (3.80-5.40) m/uL Hgb (11.4-16.0) gm/dL Hct (34.0-46.0) % APTT (22.0-30.0) sec Chloride 108 H (98-107) mmol/L BUN (7-17) mg/dL Glucose 113 H (74-99) mg/dL POC Glucose (mg/dL) (75-99) mg/dL Total Bilirubin 1.8 H (0.2-1.3) mg/dL AST (14-36) U/L Albumin 3.3 L (3.5-5.0) g/dL Ur Specific [place] (1.001-1.035) Urine Protein (Negative) Urine Blood (Negative) Urine Mucus (None) /hpf
--- NOTE | 2021-10-05 09:57 | ECHOF ---
Referral Reason:CVA MEASUREMENTS -------- HEIGHT: 165.1 cm WEIGHT: 144.7 kg BP: RVIDd: 3.1 cm (< 3.3) IVSd: 1.5 cm (0.6 - 1.1) LVIDd: 5.1 cm (3.9 - 5.3) LVPWd: 1.3 cm (0.6 - 1.1) IVSs: 1.4 cm LVIDs: 4.2 cm LVPWs: 1.0 cm LA Diam: 4.0 cm (2.7 - 3.8) Ao Diam: 4.4 cm (2.0 - 3.7) AV Cusp: 1.9 cm (1.5 - 2.6) MV EXCURSION: 18.547 mm (> 18.000) MV EF SLOPE: 59 mm/s (70 - 150) EPSS: 0.7 cm MV E Jose: 0.46 m/s MV DecT: 236 ms MV A Jose: 0.76 m/s MV E/A Ratio: 0.61 RAP: 5.00 mmHg RVSP: 19.96 mmHg FINDINGS -------- Sinus rhythm. This was a technically adequate study. Morbid Obesity The left ventricular size is normal. There is moderate concentric left ventricular hypertrophy. O verall left ventricular systolic function is low-normal with, an EF between 50 - 55 %. The right ventricle is normal in size. The left atrial size is normal. The right atrial size is normal. There is mild aortic valve sclerosis. There is no evidence of aortic regurgitation. Mild mitral regurgitation is present. Mild tricuspid regurgitation present. Right ventricular systolic pressure is normal at < 35 mmHg. The pulmonic valve was not well visualized. Echo free space indicative of a pericardial fat pad. CONCLUSIONS -------- 1. Morbid Obesity 2. The left ventricular size is normal. 3. There is moderate concentric left ventricular hypertrophy. 4. Overall left ventricular systolic function is low-normal with, an EF between 50 - 55 %. 5. The right ventricle is normal in size. 6. The left atrial size is normal. 7. The right atrial size is normal. 8. There is mild aortic valve sclerosis. 9. Mild mitral regurgitation is present. 10. Mild tricuspid regurgitation present. 11. The pulmonic valve was not well visualized. 12. Echo free space indicative of a pericardial fat pad. [employer]ER: Kathy Armendariz RDCS
--- NOTE | 2021-10-05 10:26 | P.CNNES ---
History of Present Illness Consult date: 10/05/21 Requesting physician: Lakhwinder Baptiste Reason for Consult: CVA with tpa History of Present Illness: This is a 71-year-old left handed-dominant woman with medical history of hypertension, edema of bilateral lower extremities, chronic low back pain who presented emergency department on 10/04/2021 for left-sided weakness and sensory deficits. Onset of symptoms began around 5:15 PM on 10/04/2021 and she presents our facility around 6:40 PM same day of her symptoms. While at home she wanted to pickle sorter something and noted that she is weak on the left side . She also felt cold sensation. Otherwise denies any new neurological problems. She denies of any visual disturbance, difficulty getting her words out, swallowing. She denied any history of stroke. Patient denies being on any antiplatelets or anticoagulation. She denies tobacco use or illicit drug use. She says that she has edema of her bilateral lower extremities and she was taking Lasix but stopped earlier this week since she didn't feel like was work ing. She said she had history of hypertension and was on Lisinopril 10mg daily and stopped with few months ago and states her blood pressure is controlled. She said her blood pressure broke a few weeks ago. She used to be on ASA on her own and stopped taking 6 months ago on her own because she said her mom had allergy to it. She follows-up with her PCP and believe last was in summer of 2020. She lives on her own and uses a walker. Some other workup in the hospital consisted of: Initial vital signs was blood pressure of 171/95, heart rate of 100, respiratory of 20, temperature of 97.9 Fahrenheit oral, pulse ox of 96% at room air and was on 2 L of nasal cannula. Initial hemoglobin is 17.0 hematocrit is 52.7, white blood cells 7.6K and the platelets is 207,000. Chemistry panel is initial serum glucose is 126, creatinine is 0.65, sodium is 139, calcium is 9.4, AST 39, ALT of 24. PT, PTT and INR were unremarkable. Urinalysis is negative for urinary tract infection Schuster virus PCR was not detected. CT of the head is reported as mild atrophy. Mild chronic small vessel ischemia. No acute intracranial abnormality. I personally reviewed the CT head and I didn't feel that there is acute ischemia or subacute ischemia. There is no intraparenchymal hemorrhage. CT angiography of the head and neck is reported as negative. Also reported aneurysm of the ascending aorta incompletely evaluated. Stroke code was activated and per the ED team the patient had NIH of a 41.4 sensory deficit, 1 point for weakness of both lower extremity and 1 for left upper extremity drift. The ED team spoke with the stroke team and it was felt the patient was TPA candidate so TPA was given. Patient was given a bolus of TPA of 9 mg at 19:07 and the rest of the infusion of 81 mg over1 hour stopped at 20:08. Currently patient is feels better and feels symptoms are improving. Review of Systems Review of system: The 12 point system was reviewed and apparent positive and negative per HPI. Past Medical History Past Medical History: Hypertension Additional Past Medical History / Comment(s): sciatic nerve History of Any Multi-Drug Resistant Organisms: None Reported Past Surgical History: Cholecystectomy Past Psychological History: No Psychological Hx Reported Smoking Status: Never smoker Past Alcohol Use History: Rare Past Drug Use History: None Reported Medications and Allergies Home Medications Medication Instructions Recorded Confirmed Type No Known Home Medications 10/04/21 10/04/21 History Allergies Allergy/AdvReac Type Severity Reaction Status Date / Time No Known Allergies Allergy Verified 10/04/21 20:01 Physical Examination - Vital Signs Vital Signs: Vital Signs Temp Pulse Pulse Resp BP BP Pulse Ox 10/05/21 08:00 98.2 F 72 16 140/76 96 10/05/21 07:30 78 19 140/76 97 10/05/21 07:00 87 13 138/78 97 10/05/21 06:30 68 14 138/78 96 10/05/21 06:00 71 18 133/77 96 10/05/21 05:30 80 17 133/77 96 10/05/21 05:00 61 11 L 148/79 97 10/05/21 04:30 69 11 L 95 10/05/21 04:00 98.2 F 76 13 135/79 95 10/05/21 03:30 76 12 97 10/05/21 03:00 78 12 143/86 95 10/05/21 02:30 60 11 L 95 10/05/21 02:00 72 23 131/82 97 10/05/21 01:30 65 11 L 95 10/05/21 01:00 60 11 L 128/78 94 L 10/05/21 00:30 70 17 94 L 10/05/21 00:07 80 23 96 10/05/21 00:00 98.2 F 61 11 L 134/77 95 10/04/21 23:45 65 17 134/77 94 L 10/04/21 23:30 58 L 11 L 94 L 10/04/21 23:15 64 13 94 L 10/04/21 23:00 65 12 131/80 92 L 10/04/21 22:45 75 20 95 10/04/21 22:30 79 19 93 L 10/04/21 22:15 85 22 131/80 94 L 10/04/21 22:00 67 14 127/79 92 L 10/04/21 21:45 81 19 127/79 95 10/04/21 21:30 75 16 127/79 95 10/04/21 21:10 75 16 127/79 95 10/04/21 21:00 98.1 F 80 19 127/73 96 10/04/21 20:50 95 19 96 10/04/21 20:49 84 39 H 97 10/04/21 20:37 82 16 138/96 95 10/04/21 20:25 81 16 135/76 95 10/04/21 20:23 98.1 F 79 17 127/79 10/04/21 20:08 80 16 157/87 95 10/04/21 19:46 77 18 140/79 96 10/04/21 19:41 79 16 135/74 95 10/04/21 19:36 79 16 135/74 95 10/04/21 19:31 78 20 135/74 95 10/04/21 19:23 80 20 145/79 95 10/04/21 19:18 81 20 142/69 95 10/04/21 19:13 83 16 150/100 93 L 10/04/21 19:07 88 16 171/95 95 10/04/21 19:04 97.9 F 100 20 171/95 96 Intake and Output 10/04/21 10/05/21 10/05/21 22:59 06:59 14:59 Intake Total 200 800 100 Output Total 100 800 150 Balance 100 0 -50 Intake: IV 200 800 100 Sodium Chloride 0.9% 1, 200 800 100 000 ml @ 100 mls/hr IV . Q10H [facility] Rx#:[id number] Output: Urine 100 800 150 Other: Voiding Method Indwelling Catheter Weight 147.418 kg 145 kg GENERAL: The patient is a morbid obese woman, lying in bed and is not in acute distress. CHEST: The heart rate is regular rate rhythm. No murmurs to auscultation. No carotid bruit bilaterally. Significant pitting edema in lower extremities 3+. LUNG: Clear to auscultation bilaterally no wheezing noted throughout. Not labored breathing. ABDOMEN/GI: Bowel sounds present in all 4 quadrants. No tenderness to palpation throughout. NEUROLOGICAL: Higher mental function: The patient is awake, alert, oriented to self, place and time. Patient is following simple commands. No aphasia and no neglect. Cranial nerves: The pupils are round, equal and reactive to light. Visual stubbs are full to confrontation throughout. Extraocular movement is intact no nystagmus is noted. Facial sensation is normal to touch throughout. The facial strength is normal throughout. Hearing is normal bilaterally to hand rub. Tongue is midline and moved [id number] without any difficulty. No dysarthria is noted. Motor: Gait is deferred. The strength is proximal bilateral upper is 4+ b/l (there is felt slight drift on the right > left). Otherwise forearm are 5/5. Left hand composite engineer is 5-. Lowers is able to lift above gravity without drift. Normal tone and bulk. Has significant edema of bilateral lower extremities. Cerebellum: Normal finger to nose heel to zelaya bilaterally. Sensation: Sensation is normal to touch throughout. Reflexes (right/left): 2+ throughout upper while lowers are 1+ (has significant edema). Plantars are mute bilaterally. Results - Laboratory Findings CBC and BMP: 10/04/21 19:02 10/05/21 06:15 Abnormal Lab Findings: Abnormal Labs 10/04/21 10/04/21 10/04/21 18:44 19:02 19:02 RBC 5.56 H Hgb 17.0 H Hct 52.7 H APTT 21.0 L Chloride BUN Glucose POC Glucose (mg/dL) 122 H Total Bilirubin AST Albumin Ur Specific [place] Urine Protein Urine Blood Urine Mucus 10/04/21 10/04/21 10/04/21 19:02 20:21 20:50 RBC Hgb Hct APTT Chloride BUN 18 H Glucose 126 H POC Glucose (mg/dL) 118 H Total Bilirubin 1.7 H AST 39 H Albumin Ur Specific [place] 1.041 H Urine Protein Trace H Urine Blood Small H Urine Mucus Rare H 10/05/21 06:15 RBC Hgb Hct APTT Chloride 108 H BUN Glucose 113 H POC Glucose (mg/dL) Total Bilirubin 1.8 H AST Albumin 3.3 L Ur Specific [place] Urine Protein Urine Blood Urine Mucus Assessment and Plan Assessment: Acute CVA (left sided weakness with numbness. NIH 4 on presentation per ED) status post IV TPA Hypertension Significant Bilateral lower extremity edema Morbid obesity with BMI of 51.6 Plan: Avoid and site platelet or anticoagulation until post 24 hour TPA. We'll start the patient on aspirin 81 and Plavix 75 if the primary repeat CT of the head scheduled at 1944 today is negative for bleed. I started the patient on Lipitor 40 mg daily at bedtime for secondary stroke prophylaxis I ordered MRI of the brain for later today and if unable we'll attempt to get her tomorrow. 2-D echo, lipid panel, hemoglobin A1c is ordered are pending Continue neuro checks per TPA protocol Avoid systolic blood pressure more than 185 and diastolic more than 110 per TPA protocol and we'll defer the management to the primary and ICU team PT, OT and SEO CONSULTANT are consulted Continue cardiac monitoring Patient was counseled on weight loss. We'll defer the rest of the medical management to the primary and ICU team For DVT prophylaxis for now use SCDs. If CT of the head is negative for bleed recommend either Lovenox or subcu heparin for DVT prophylaxis. The plan is discussed with the patient and her nurse. Thank you for the consultation. Eduard Barron M.D. Neuro-hospitalist Time with Patient: Greater than 30
--- NOTE | 2021-10-05 10:39 | P.CNPUL ---
History of Present Illness Consult date: 10/05/21 Requesting physician: Martha Busch Reason for consult: other History of present illness: 71-year-old white female patient of Dr. Arash Paniagua with no significant past medical history other than hypertension, chronic lower extremity edema, morbid obesity, lifetime nonsmoker, who presented to the emergency department on 10/04/2021 for evaluation of strokelike symptoms, with onset of symptoms at 5:15 PM, time of the arrival in the ED was 640, her symptoms included left-sided weakness, lip tingling, left hand weakness. No speech difficulties, her NIH score on arrival was 4. Patient denied any other symptoms no chest pain, no fever or chills, no shortness of breath, no lightheadedness. She is awake and alert, oriented 3, she is denying any history of intracranial hemorrhage that was mentioned in the ED records. She is not on any blood thinners. She does endorse worsening bilateral lower extremity edema, she states she used to take Lasix in the past however it did not make her edema better so she stopped taken it. No shortness of breath, "stroke was activated, and CT of the brain showed mild atrophy, mild chronic small vessel ischemia, no acute intracranial abnormality. Patient was a good candidate for alteplase and she did receive alteplase per protocol. Angiography CT of the brain showed arterial flow in the vertebral basilar artery system bilaterally, anterior middle and posterior ce rebral arteries, no mass effect, no evidence of intracranial aneurysm or neovascularity, negative CT angiogram of the neck. Currently NIH score is improved, and her neurological symptoms have improved. Admission blood work has been reviewed showing normal white count of 7.6, hemoglobin of 17, platelet count of 207, INR of 0.9, electrolytes are within normal limits, BUN was 18 creatinine 0.65, total bilirubin was 1.7, AST was 39, ALT and alk phos were within normal limits, troponin was negative at 0.013, proBNP was normal at 88, urinalysis showed a trace protein, small amount of blood, no evidence of infection, COVID-19 PCR was negative. Patient is breathing comfortably, room air pulse ox was 96%, she was hypertensive on presentation with a blood pressure 171/95 in the emergency department, she is slightly tachycardic, EKG showed sinus tachycardia. Chest x-ray has been obtained showing no active cardiopulmonary disease, echocardiogram showed moderate concentric LVH, low normal left ventricular systolic function with an EF of 50-55%, right ventricle, left atrial and right atrial size was normal, there was mild aortic valve sclerosis, mild mitral regurg, mild tricuspid regurg, and the pulmonic valve was not well visualized, PA pressure was less than 35 mmHg. This morning she seen in intensive care unit where she was observed overnight, she is awake and alert, oriented 3, her left hand weakness has resolved, facial asymmetry, no sensory deficits. Vital signs remained stable overnight, she is breathing comfortably, room air pulse ox is 95%, blood pressure has improved and is down to 133/77, she is in sinus mechanism with a rate of 75, she has been afebrile. She is still has bilateral lower extremity swelling, she has been started on IV Lasix 20 mg every 12 hours, she is on 0.9 at KVO, Lipitor 40 mg at bedtime. ALLERGIES services are closely following, patient has a follow-up CT scan of the brain this evening. She will be closely monitored in the ICU through today Review of Systems All systems: negative Constitutional: Denies chills, Denies fever Eyes: denies blurred vision, denies pain Ears, nose, mouth and throat: Denies headache, Denies sore throat Cardiovascular: Reports edema, Denies chest pain, Denies shortness of breath Respiratory: Denies cough Gastrointestinal: Denies abdominal pain, Denies diarrhea, Denies nausea, Denies vomiting Genitourinary: Denies dysuria, Denies hematuria Musculoskeletal: Denies myalgias Integumentary: Reports wounds, Denies pruritus, Denies rash Neurological: Reports numbness, Reports paresthesias, Denies weakness Psychiatric: Denies anxiety, Denies depression Endocrine: Denies fatigue, Denies weight change Past Medical History Past Medical History: Hypertension Additional Past Medical History / Comment(s): sciatic nerve, chronic lower extremity edema History of Any Multi-Drug Resistant Organisms: None Reported Past Surgical History: Cholecystectomy Past Psychological History: No Psychological Hx Reported Smoking Status: Never smoker Past Alcohol Use History: Rare Past Drug Use History: None Reported Medications and Allergies Home Medications Medication Instructions Recorded Confirmed Type No Known Home Medications 10/04/21 10/04/21 History Allergies Allergy/AdvReac Type Severity Reaction Status Date / Time No Known Allergies Allergy Verified 10/04/21 20:01 Physical Exam Vitals: Vital Signs Temp Pulse Pulse Resp BP BP Pulse Ox 10/05/21 10:00 75 12 133/77 95 10/05/21 09:30 80 14 133/77 94 L 10/05/21 09:00 76 10 L 129/72 97 10/05/21 08:30 79 19 129/72 97 10/05/21 08:18 98 10/05/21 08:00 98.2 F 72 16 140/76 96 10/05/21 07:30 78 19 140/76 97 10/05/21 07:00 87 13 138/78 97 10/05/21 06:30 68 14 138/78 96 10/05/21 06:00 71 18 133/77 96 10/05/21 05:30 80 17 133/77 96 10/05/21 05:00 61 11 L 148/79 97 10/05/21 04:30 69 11 L 95 10/05/21 04:00 98.2 F 76 13 135/79 95 10/05/21 03:30 76 12 97 10/05/21 03:00 78 12 143/86 95 10/05/21 02:30 60 11 L 95 10/05/21 02:00 72 23 131/82 97 10/05/21 01:30 65 11 L 95 10/05/21 01:00 60 11 L 128/78 94 L 10/05/21 00:30 70 17 94 L 10/05/21 00:07 80 23 96 10/05/21 00:00 98.2 F 61 11 L 134/77 95 10/04/21 23:45 65 17 134/77 94 L 10/04/21 23:30 58 L 11 L 94 L 10/04/21 23:15 64 13 94 L 10/04/21 23:00 65 12 131/80 92 L 10/04/21 22:45 75 20 95 10/04/21 22:30 79 19 93 L 10/04/21 22:15 85 22 131/80 94 L 10/04/21 22:00 67 14 127/79 92 L 10/04/21 21:45 81 19 127/79 95 10/04/21 21:30 75 16 127/79 95 10/04/21 21:10 75 16 127/79 95 10/04/21 21:00 98.1 F 80 19 127/73 96 10/04/21 20:50 95 19 96 10/04/21 20:49 84 39 H 97 10/04/21 20:37 82 16 138/96 95 10/04/21 20:25 81 16 135/76 95 10/04/21 20:23 98.1 F 79 17 127/79 10/04/21 20:08 80 16 157/87 95 10/04/21 19:46 77 18 140/79 96 10/04/21 19:41 79 16 135/74 95 10/04/21 19:36 79 16 135/74 95 10/04/21 19:31 78 20 135/74 95 10/04/21 19:23 80 20 145/79 95 10/04/21 19:18 81 20 142/69 95 10/04/21 19:13 83 16 150/100 93 L 10/04/21 19:07 88 16 171/95 95 10/04/21 19:04 97.9 F 100 20 171/95 96 Intake and Output 10/04/21 10/05/21 10/05/21 22:59 06:59 14:59 Intake Total 200 800 400 Output Total 887 497 3422 Balance 100 0 -810 Intake: IV 200 800 400 Sodium Chloride 0.9% 1, 200 800 400 000 ml @ 100 mls/hr IV . Q10H [facility] Rx#:[id number] Output: Urine [id number] Other: Voiding Method Indwelling Catheter Indwelling Catheter Weight 147.418 kg 145 kg GENERAL EXAM: Alert, very pleasant, morbidly obese 71-year-old white female, breathing currently, oriented 3, without gross neurological deficits on room air with pulse ox of 95%, comfortable in no apparent distress. HEAD: Normocephalic/atraumatic. EYES: Normal reaction of pupils, equal size. Conjunctiva pink, sclera white. NOSE: Clear with pink turbinates. THROAT: No erythema or exudates. NECK: No masses, no JVD, no thyroid enlargement, no adenopathy. CHEST: No chest wall deformity. Symmetrical expansion. LUNGS: Equal air entry with no crackles, wheeze, rhonchi or dullness. CVS: Regular rate and rhythm, normal S1 and S2, no gallops, no murmurs, no rubs ABDOMEN: Soft, nontender. No hepatosplenomegaly, normal bowel sounds, no guarding or rigidity. EXTREMITIES: No clubbing, 1+ bilateral lower extremity edema, no cyanosis, 2+ pulses and upper and lower extremities. MUSCULOSKELETAL: Muscle strength and tone normal. SPINE: No scoliosis or deformity SKIN: No rashes CENTRAL NERVOUS SYSTEM: Alert and oriented -3. No focal deficits, tone is normal in all 4 extremities. PSYCHIATRIC: Alert and oriented -3. Appropriate affect. Intact judgment and insight. Results - Laboratory Findings CBC and BMP: 10/04/21 19:02 10/05/21 06:15 PT/INR, D-dimer PT 10.0 sec (9.0-12.0) 10/04/21 19: INR 0.9 (<1.2) 10/04/21 19:02 Abnormal lab findings: Abnormal Labs 10/04/21 10/04/21 10/04/21 18:44 19:02 19:02 RBC 5.56 H Hgb 17.0 H Hct 52.7 H APTT 21.0 L Chloride BUN Glucose POC Glucose (mg/dL) 122 H Total Bilirubin AST Albumin Ur Specific [place] Urine Protein Urine Blood Urine Mucus 10/04/21 10/04/21 10/04/21 19:02 20:21 20:50 RBC Hgb Hct APTT Chloride BUN 18 H Glucose 126 H POC Glucose (mg/dL) 118 H Total Bilirubin 1.7 H AST 39 H Albumin Ur Specific [place] 1.041 H Urine Protein Trace H Urine Blood Small H Urine Mucus Rare H 10/05/21 06:15 RBC Hgb Hct APTT Chloride 108 H BUN Glucose 113 H POC Glucose (mg/dL) Total Bilirubin 1.8 H AST Albumin 3.3 L Ur Specific [place] Urine Protein Urine Blood Urine Mucus - Diagnostic Findings Chest x-ray: report reviewed, image reviewed Additional studies: CT of the brain, CT angiography of the brain, echocardiogram, EKG reviewed Assessment and Plan Plan: Assessment: #1. Acute CVA, with left-sided weakness and numbness, and age 5 on presentation, status post IV alteplase on 10/04/2021, with improvement in NIH score, which is currently down to 0 #2. Hypertension #3. Chronic bilateral lower extremity edema #4. Morbid obesity with BMI of 51.6 kg/m #5. Nonsmoker Plan: Continue close neurological monitoring in the ICU hemodynamically patient is stable, No episodes of Afib CT of the brain, CT angiography of the brain, echocardiogram and EKG reviewed Repeat CT of the brain this evening December Hep-Lock IVs, patient is tolerating oral intake Lipid panel, hemoglobin A1c ordered and pending Physical therapy, occupational therapy and bedside swallow evaluation Neurology recommendations Continue with IV Lasix, monitor electrolytes and renal profile We'll continue to follow I performed a history & physical examination of the patient and discussed their management with my nurse practitioner, Alexa Robledo. I reviewed the nurse practitioner's note and agree with the documented findings and plan of care. Lung sounds are positive for dim breatrh sounds throughout the lung stubbs. The findings and the impression was discussed with the patient. I attest to the documentation by the nurse practitioner. Time with Patient: Greater than 30
[2021-10-05 14:25] LABS: Chol/HDL Ratio 2.87 Ratio; LDL Cholesterol,Calculated 89.9 mg/dL (0.0-131.0); VLDL Calculation 18.34 mg/dL (5.00-40.00)
[2021-10-05 14:33] LABS: Estimated Average Glucose UNC
--- NOTE | 2021-10-05 15:13 | MR ---
EXAMINATION TYPE: MR brain wo con DATE OF EXAM: 10/05/2021 COMPARISON: CT brain from 1 day earlier HISTORY: stroke. Post tpa. Acute onset neuro deficit on admission one day earlier. TECHNIQUE: Multiplanar, multisequence imaging of the brain and brainstem is performed without IV cont rast. FINDINGS: Diffusion weighted images demonstrate a 9 x 4 mm oval area of increased signal on diffusion-weighted imaging with diminished signal ADC mapping showing slight T1 hypointensity and T2 hyperintensity in t he lateral right thalamus axial image 16. Below this there are additional subcortical areas of increa sed signal on diffusion-weighted imaging with diminished signal ADC mapping involving the medial post erior right temporal lobe including insular cortex for reference image 88 consistent with additional area of acute infarct. Scattered punctate areas of restricted diffusion in the posterior right occipi darcy lobe inferiorly are present. Mild ventricular and sulcal prominence redemonstrated. Multiple foci of T2 hyperintensity are seen th roughout the white matter bilaterally becoming fairly confluent periventricular levels. Midline structures demonstrate normal morphology. The craniocervical junction appears within normal limits. Normal vascular flow voids are present. The visualized sinuses are clear and the globes are i ntact. IMPRESSION: 1. Multifocal right-sided acute infarcts as detailed above. 2. Background mild diffuse cerebral atrophy and moderate to advanced chronic small vessel ischemic ch anges are present.
[2021-10-05] MEDS: PANTOPRAZOLE 40 MG/10 ML VIAL IVP SCH (19:15)
--- NOTE | 2021-10-05 21:12 | CT ---
EXAMINATION TYPE: CT brain wo con CT DLP: 1202.1 mGycm, Automated exposure control for dose reduction was used. DATE OF EXAM: 10/05/2021 8:51 PM COMPARISON: Prior CT Brain from 10/24/2021. CLINICAL INDICATION:Female, 71 years old with history of Neuro deficit, acute, stroke suspected, Foll ow up TPA. TECHNIQUE: Brain: Multiple axial CT images of the brain were obtained without IV contrast. FINDINGS: Brain: Extra-axial spaces: No abnormal extra-axial fluid collections. Ventricular system: Within normal limits Cerebral parenchyma: No acute intraparenchymal hemorrhage or mass effect. The metz-white junction is well differentiated. Scattered hypoattenuating areas are seen within the white matter. Cerebellum: Hypodense area within the right cerebellum is unchanged. Mass effect: No evidence of midline shift. Intracranial vasculature: unremarkable Soft tissues: Normal. Calvarium/osseous structures: No depressed skull fracture. Paranasal sinuses and mastoid air cells: Clear. Visualized orbits: Orbital contents are intact. IMPRESSION: 1. No acute intracranial process. 2. 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
[2021-10-05] MEDS: ATORVASTATIN 40 MG TAB PO SCH (22:31)
[2021-10-05] MEDS: HEPARIN SODIUM,PORCINE/PF 5,000 UNIT/0.5 ML SYRINGE SQ SCH (22:31)
[2021-10-05] MEDS: CLOPIDOGREL 75 MG TAB PO SCH (22:31)
[2021-10-06 06:02] LABS: Basophils % (A) 0 %; Eosinophils # (A) 0.2 k/uL (0-0.7); Eosinophils % (A) 2 %; HCT 46.6 % (34.0-46.0); HGB 14.9 gm/dL (11.4-16.0); Lymphocytes # (A) 2.2 k/uL (1.0-4.8); Lymphocytes % (A) 32 %; MCH 29.8 pg (25.0-35.0); MCHC 31.9 g/dL (31.0-37.0); MCV 93.6 fL (80.0-100.0); Mean Platelet Volume 8.5; Monocytes # (A) 0.4 k/uL (0-1.0); Monocytes % (A) 6 %; Neutrophils # (A) 4.1 k/uL (1.3-7.7); Neutrophils % (A) 59 %; Platelet Count 172 k/uL (150-450); RBC 4.98 m/uL (3.80-5.40); RDW 14.6 % (11.5-15.5)
[2021-10-06 06:23] LABS: ALT 19 U/L (4-34); AST 35 U/L (14-36); African American GFR (CKD) >90 (>60 ml/min/1.73 sqM); Albumin 3.3 g/dL (3.5-5.0); Alkaline Phosphatase 66 U/L (38-126); Anion Gap 6 mmol/L; Blood Urea Nitrogen 17 mg/dL (7-17); Calcium 8.8 mg/dL (8.4-10.2); Carbon Dioxide 27 mmol/L (22-30); Chloride 105 mmol/L (98-107); Glucose 115 mg/dL (74-99); Non-African American GFR(CKD) 86 (>60 ml/min/1.73 sqM); Potassium 3.4 mmol/L (3.5-5.1); Sodium 138 mmol/L (137-145); Total Bilirubin 2.2 mg/dL (0.2-1.3); Total Protein 6.2 g/dL (6.3-8.2)
[2021-10-06] MEDS ORDERED: Potassium Replacement Protocol 1 EACH MISC MISCELLANE PRN (06:28)
--- NOTE | 2021-10-06 09:16 | P.PN ---
Subjective Progress Note Date: 10/06/21 71-year-old white female patient of Dr. Arash Paniagua with no significant past medical history other than hypertension, chronic lower extremity edema, morbid obesity, lifetime nonsmoker, who presented to the emergency department on 10/04/2021 for evaluation of strokelike symptoms, with onset of symptoms at 5:15 PM, time of the arrival in the ED was 640, her symptoms included left-sided weakness, lip tingling, left hand weakness. No speech difficulties, her NIH score on arrival was 4. Patient denied any other symptoms no chest pain, no fever or chills, no shortness of breath, no lightheadedness. She is awake and alert, oriented 3, she is denying any history of intracranial hemorrhage that was mentioned in the ED records. She is not on any blood thinners. She does endorse worsening bilateral lower extremity edema, she states she used to take Lasix in the past however it did not make her edema better so she stopped taken it. No shortness of breath, "stroke was activated, and CT of the brain showed mild atrophy, mild chronic small vessel ischemia, no acute intracranial abnormality. Patient was a good candidate for alteplase and she did receive alteplase per protocol. Angiography CT of the brain showed arterial flow in the vertebral basilar artery system bilaterally, anterior middle and posterior cerebral arteries, no mass effect, no evidence of intracranial aneurysm or neovascularity, negative CT angiogram of the neck. Currently NIH score is improved, and her neurological symptoms have improved. Admission blood work has been reviewed showing normal white count of 7.6, hemoglobin of 17, platelet count of 207, INR of 0.9, electrolytes are within normal limits, BUN was 18 creatinine 0.65, total bilirubin was 1.7, AST was 39, ALT and alk phos were within normal limits, troponin was negative at 0.013, proBNP was normal at 88, urinalysis showed a trace protein, small amount of blood, no evidence of infection, COVID-19 PCR was negative. Patient is breathing comfortably, room air pulse ox was 96%, she was hypertensive on presentation with a blood pressure 171/95 in the emergency department, she is slightly tachycardic, EKG showed sinus tachycardia. Chest x-ray has been obtained showing no active cardiopulmonary disease, echocardiogram showed moderate concentric LVH, low normal left ventricular systolic function with an EF of 50-55%, right ventricle, left atrial and right atrial size was normal, there was mild aortic valve sclerosis, mild mitral regurg, mild tricuspid regurg, and the pulmonic valve was not well visualized, PA pressure was less than 35 mmHg. This morning she seen in intensive care unit where she was observed overnight, she is awake and alert, oriented 3, her left hand weakness has resolved, facial asymmetry, no sensory deficits. Vital signs remained stable overnight, she is breathing comfortably, room air pulse ox is 95%, blood pressure has improved and is down to 133/77, she is in sinus mechanism with a rate of 75, she has been afebrile. She is still has bilateral lower extremity swelling, she has been started on IV Lasix 20 mg every 12 hours, she is on 0.9 at KVO, Lipitor 40 mg at bedtime. Neurology services are closely following, patient has a follow-up CT scan of the brain this evening. She will be closely monitored in the ICU through today On 10/06/2021 patient seen in follow-up in intensive care unit. She is awake and alert, in no acute distress, she is oriented 3, she is following all commands and mentation is appropriate, she is on room air breathing currently, pulse ox is 95%, in sinus mechanism with a rate of 93 BPM, blood pressure is 143/76. Neurologically she still has some numbness in her left hand, no facial weakness, no numbness in the face, strength is equal bilaterally in upper and lower extremities. No difficulty speaking, patient has passed her swallow evaluation, patient was also evaluated by physical therapy. Patient had a follow-up MRI of the brain showing multifocal right-sided acute infarcts, and background mild diffuse cerebral atrophy and moderate to advanced chronic small vessel ischemic changes. CT of the brain last night showed no acute intracranial process, remote lacunar injury of the right cerebellum along with nonspecific white matter changes possibly secondary to chronic micro-angiopathy. Objective - Vital Signs Vital signs: Vital Signs Temp 98.7 F 10/06/21 08:00 Pulse 65 10/06/21 08:00 Resp 15 10/06/21 08:00 BP 129/67 10/06/21 08:00 Pulse Ox 92 L 10/06/21 08:00 Intake & Output 10/05/21 10/06/21 10/06/21 18:59 06:59 18:59 Intake Total 400 Output Total 3210 1310 110 Balance -2810 -1310 -110 Weight 141.8 kg Intake: IV 400 Sodium Chloride 0.9% 1, 400 000 ml @ 100 mls/hr IV . Q10H [facility] Rx#:[id number] Output: Urine 3210 1310 110 Other: Voiding Method Indwelling Catheter Indwelling Catheter Indwelling Catheter # Bowel Movements 1 - Exam GENERAL EXAM: Alert, very pleasant, morbidly obese 71-year-old white female, breathing currently, oriented 3, without gross neurological deficits on room air with pulse ox of 95%, comfortable in no apparent distress. HEAD: Normocephalic/atraumatic. EYES: Normal reaction of pupils, equal size. Conjunctiva pink, sclera white. NOSE: Clear with pink turbinates. THROAT: No erythema or exudates. NECK: No masses, no JVD, no thyroid enlargement, no adenopathy. CHEST: No chest wall deformity. Symmetrical expansion. LUNGS: Equal air entry with no crackles, wheeze, rhonchi or dullness. CVS: Regular rate and rhythm, normal S1 and S2, no gallops, no murmurs, no rubs ABDOMEN: Soft, nontender. No hepatosplenomegaly, normal bowel sounds, no guarding or rigidity. EXTREMITIES: No clubbing, 1+ bilateral lower extremity edema, no cyanosis, 2+ pulses and upper and lower extremities. MUSCULOSKELETAL: Muscle strength and tone normal. SPINE: No scoliosis or deformity SKIN: No rashes CENTRAL NERVOUS SYSTEM: Alert and oriented -3. No focal deficits, tone is normal in all 4 extremities. Neurologically symptoms have significantly improved, since admission, she does have residual numbness in the left hand, no numbness in the face, no asymmetry, speech is normal, no swallowing difficulty, strength is equal bilaterally in upper and lower extremities PSYCHIATRIC: Alert and oriented -3. Appropriate affect. Intact judgment and insight. - Labs CBC & Chem 7: 10/06/21 05:25 10/06/21 05:25 Labs: Abnormal Lab Results - Last 24 Hours (Table) 10/06/21 10/06/21 Range/Units 05:25 05:25 Hct 46.6 H (34.0-46.0) % Potassium 3.4 L (3.5-5.1) mmol/L Glucose 115 H (74-99) mg/dL Total Bilirubin 2.2 H (0.2-1.3) mg/dL Total Protein 6.2 L (6.3-8.2) g/dL Albumin 3.3 L (3.5-5.0) g/dL Assessment and Plan Plan: Assessment: #1. Acute CVA, with left-sided weakness and numbness, with NIH score 4 on presentation, status post IV alteplase on 10/04/2021, with improvement in NIH score, which is currently down to 0. Brain MRI on 10/05/2021 showed a multifocal right-sided acute infarcts with background mild diffuse cerebral atrophy and moderate to advanced chronic small vessel ischemic changes. Follow-up brain CT on 10/05/2021 showed no acute intracranial process, and a remote lacunar injury to the right cerebellum along with nonspecific white matter changes possibly rel ated to microangiopathy #2. Hypertension #3. Chronic bilateral lower extremity edema #4. Morbid obesity with BMI of 51.6 kg/m #5. Nonsmoker Plan: Continue close neurological monitoring in the ICU hemodynamically patient is stable, Hemodynamically stable, no arrhythmias neurologically patient has some residual numbness in the left hand Otherwise no other neurological symptoms MRI of the brain and follow-up CT of the brain from 10/05/2021 has been noted Has been evaluated by speech and physical therapy Patient has been as bedside swallow evaluation She is tolerating oral intake Patient has been started on aspirin, subcu heparin for DVT prophylaxis, continues on Lipitor Continue IV Lasix, monitor elect lites and renal profile Increase activity as tolerated, up in the chair today Possible transfer out of the intensive care unit to [facility] care today I performed a history & physical examination of the patient and discussed their management with my nurse practitioner, Alexa Robledo. I reviewed the nurse practitioner's note and agree with the documented findings and plan of care. Lung sounds are positive for dim breatrh sounds throughout the lung stubbs. The findings and the impression was discussed with the patient. I attest to the documentation by the nurse practitioner. Time with Patient: Greater than 30
[2021-10-06] MEDS: CLOPIDOGREL 75 MG TAB PO SCH (09:34)
[2021-10-06] MEDS: PANTOPRAZOLE 40 MG/10 ML VIAL IVP SCH (09:34)
[2021-10-06] MEDS: POTASSIUM CHLORIDE ER 20 MEQ TAB.ER PO SCH ×2 (09:34→11:05)
[2021-10-06] MEDS: HEPARIN SODIUM,PORCINE/PF 5,000 UNIT/0.5 ML SYRINGE SQ SCH ×2 (09:35→21:30)
[2021-10-06] MEDS: ASPIRIN 81 MG PO SCH ×3 (09:35→16:50)
--- NOTE | 2021-10-06 10:15 | P.CRDCN ---
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 She had almost total resolution of her symptoms. She is feeling well this morning. She is in sinus mechanism. Her computed tomography scan showed multiple lesions raising the possibility of a cardiac etiology. Her echocardiogram showed an ejection fraction of 50-55% with mild mitral regurgitation and tricuspid regurgitation. Her level of activity is stable but limited. She denies any chest discomfort, PND or orthopnea but she has chronic peripheral edema. She had some palpitation prior to the event no history of documented arrhythmia and she has been in sinus mechanism since admission. She has no prior cardiac workup and no history of documented CHF CAD. She was told that she was hypertensive in the past but subsequently has been stable and has not been on medical regimen. She has no history of diabetes and she is a nonsmoker. She is on no medications at home. Respiratory: No history of asthma, bronchitis or recent cough. GI: No nausea, vomiting. No history of peptic ulcer disease. No recent GI bleed. : No hematuria or dysuria. Nervous System: No stroke or seizure the past. Head: Normocephalic. Obese Eyes: Sclerae nonicteric. Neck: Good carotid upstroke, no bruit, no jugular venous distention. Lungs: Clear to auscultation. Heart: Regular rate and rhythm, S1-S2, no S3, no murmur or rub. Abdomen: Soft nontender, positive bowel sounds no organomegaly. Extremities: 2+ peripheral, intact distal pulses. Lab data: BUN and creatinine 17 and 0.7, potassium 3.4, hemoglobin 14.9. EKG shows sinus mechanism with no ischemic changes with left axis deviation and LVH by voltage criteria Impression: 1. [ Status post CVA with TPA treatment and resolution of the symptoms] 2. [ Obesity] 3. [ Chronic peripheral edema] 4. [ Prior history of hypertension] Plan: In view of the results of her MRI and the computed tomography scan and the possibility of cardiac etiology, I'll proceed with performing a NAVDEEP, the risks and the complications were discussed with the patient and she is informed standing and agreement. Depending on the results she may benefit from outpatient monitoring and I will be further evaluated depending on the results of her NAVDEEP. Thank you for this consult we will follow with you. Past Medical History Past Medical History: Hypertension Additional Past Medical History / Comment(s): sciatic nerve History of Any Multi-Drug Resistant Organisms: None Reported Past Surgical History: Cholecystectomy Past Psychological History: No Psychological Hx Reported Smoking Status: Never smoker Past Alcohol Use History: Rare Past Drug Use History: None Reported Medications and Allergies Home Medications Medication Instructions Recorded Confirmed Type No Known Home Medications 10/04/21 10/04/21 History Allergies Allergy/AdvReac Type Severity Reaction Status Date / Time No Known Allergies Allergy Verified 10/04/21 20:01 Physical Exam Vitals: Vital Signs Temp Pulse Resp BP Pulse Ox 10/06/21 08:00 98.7 F 65 15 129/67 92 L 10/06/21 07:00 59 L 15 121/67 93 L 10/06/21 06:00 64 16 102/54 93 L 10/06/21 05:00 60 14 122/66 91 L 10/06/21 04:00 98.4 F 64 18 105/62 92 L 10/06/21 03:00 64 16 93/58 92 L 10/06/21 02:00 65 13 120/62 92 L 10/06/21 01:00 80 20 122/64 92 L 10/06/21 00:00 98.6 F 72 16 129/68 92 L 10/05/21 23:00 78 14 127/73 92 L 10/05/21 22:00 98.9 F 79 20 112/70 92 L 10/05/21 21:00 75 13 132/87 94 L 10/05/21 20:00 77 10 L 136/83 92 L 10/05/21 19:00 78 16 136/71 95 10/05/21 18:30 84 13 136/71 93 L 10/05/21 18:00 74 16 137/75 93 L 10/05/21 17:30 76 24 137/75 94 L 10/05/21 17:00 81 12 120/59 95 10/05/21 16:00 99.5 F 72 16 126/72 92 L 10/05/21 15:00 153/82 10/05/21 14:00 74 18 138/72 90 L 10/05/21 13:00 73 19 128/84 94 L 10/05/21 12:00 99.5 F 100 14 143/86 93 L 10/05/21 11:00 79 13 153/90 91 L Intake and Output 10/05/21 10/06/21 10/06/21 22:59 06:59 14:59 Output Total 825 1085 110 Balance -825 -1085 -110 Output: Urine 825 1085 110 Other: Voiding Method Indwelling Catheter Indwelling Catheter Indwelling Catheter # Bowel Movements 1 Weight 141.8 kg Results 10/06/21 05:25 10/06/21 05:25 Cardiac Enzymes 10/06/21 Range/Units 05:25 AST 35 (14-36) U/L Lipids 10/05/21 Range/Units 06:15 Triglycerides 91.70 (0.00-149.00) mg/dL Cholesterol 166.00 (0.00-200.00) mg/dL HDL Cholesterol 57.80 (40.00-60.00) mg/dL Cholesterol/HDL Ratio 2.87 Ratio CBC 10/06/21 Range/Units 05:25 WBC 7.0 (3.8-10.6) k/uL RBC 4.98 (3.80-5.40) m/uL Hgb 14.9 (11.4-16.0) gm/dL Hct 46.6 H (34.0-46.0) % Plt Count 172 (150-450) k/uL Comprehensive Metabolic Panel 10/06/21 Range/Units 05:25 Sodium 138 (137-145) mmol/L Potassium 3.4 L (3.5-5.1) mmol/L Chloride 105 (98-107) mmol/L Carbon Dioxide 27 (22-30) mmol/L BUN 17 (7-17) mg/dL Creatinine 0.72 (0.52-1.04) mg/dL Glucose 115 H (74-99) mg/dL Calcium 8.8 (8.4-10.2) mg/dL AST 35 (14-36) U/L ALT 19 (4-34) U/L Alkaline Phosphatase 66 (38-126) U/L Total Protein 6.2 L (6.3-8.2) g/dL Albumin 3.3 L (3.5-5.0) g/dL Current Medications Generic Name Dose Route Start Last Admin Trade Name Freq PRN Reason Stop Dose Admin Aspirin 81 mg 10/05/21 22:00 10/06/21 09:40 Aspirin 81 Mg PO 81 mg DAILY [facility] Administration Atorvastatin Calcium 40 mg 10/05/21 21:00 10/05/21 22:31 Atorvastatin 40 Mg Tab PO 40 mg HS [facility] Administration Clopidogrel Bisulfate 75 mg 10/05/21 22:00 10/06/21 09:34 Clopidogrel 75 Mg Tab PO 75 mg DAILY [facility] Administration Furosemide 20 mg 10/07/21 09:00 Furosemide 10 Mg/Ml 2 Ml Vial IV DAILY [facility] Heparin Sodium (Porcine) 5,000 unit 10/05/21 22:00 10/06/21 09:35 Heparin Sodium,Porcine/Pf 5,000 Unit/0.5 Ml Syringe SQ 5,000 unit Q12HR [facility] Administration Alteplase, Recombinant 9 mg/ 9 mls @ 540 mls/hr 10/04/21 18:48 10/04/21 19:07 IV Solution IV 10/04/21 18:49 540 mls/hr ONCE STA Administration Miscellaneous Information 1 each 10/06/21 06:28 Potassium Replacement Protocol 1 Each Misc MISCELLANE DAILY PRN Per Protocol Protocol Pantoprazole Sodium 40 mg 10/05/21 10:45 10/06/21 09:34 Pantoprazole 40 Mg/10 Ml Vial IVP 40 mg DAILY [facility] Administration Intake and Output 10/05/21 10/06/21 10/06/21 22:59 06:59 14:59 Output Total 825 1085 110 Balance -825 -1085 -110 Output: Urine 825 1085 110 Other: Voiding Method Indwelling Catheter Indwelling Catheter Indwelling Catheter # Bowel Movements 1 Weight 141.8 kg 10/06/21 05:25 10/06/21 05:25
--- NOTE | 2021-10-06 11:17 | P.PN ---
Subjective Progress Note Date: 10/06/21 The patient is seen at bedside and she feels about the same. She continues to feel numb over the left hand. Objective - Vital Signs Vital signs: Vital Signs Temp 98.7 F 10/06/21 08:00 Pulse 80 10/06/21 10:00 Resp 19 10/06/21 10:00 BP 128/67 10/06/21 09:00 Pulse Ox 94 L 10/06/21 09:00 Intake & Output 10/05/21 10/06/21 10/06/21 18:59 06:59 18:59 Intake Total 400 Output Total 3210 1310 260 Balance -2810 -1310 -260 Weight 141.8 kg Intake: IV 400 Sodium Chloride 0.9% 1, 400 000 ml @ 100 mls/hr IV . Q10H [facility] Rx#:[id number] Output: Urine 3210 1310 260 Other: Voiding Method Indwelling Catheter Indwelling Catheter Indwelling Catheter # Bowel Movements 1 - Exam GENERAL: The patient is a morbid obese woman, lying in bed and is not in acute distress. NEUROLOGICAL: Higher mental function: The patient is awake, alert, oriented to self, place and time. Patient is following simple commands. No aphasia and no neglect. Cranial nerves: The pupils are round, equal and reactive to light. Visual stubbs are full to confrontation throughout. Extraocular movement is intact no nystagmus is noted. Facial sensation is normal to touch throughout. The facial strength is normal throughout. Hearing is normal bilaterally to hand rub. Tongue is midline and moved [id number] without any difficulty. No dysarthria is noted. Motor: Gait is deferred. The strength is proximal bilateral upper is 4+ b/l (there is felt slight drift on the right > left). Otherwise forearm are 5/5. Left hand fisheries technical officer is 5-. Lowers is able to lift above gravity without drift. Normal tone and bulk. Has significant edema of bilateral lower extremities. Cerebellum: Normal finger to nose heel to zelaya bilaterally. Sensation: Sensation is normal to touch throughout. Reflexes (right/left): 2+ throughout upper while lowers are 1+ (has significant edema). Plantars are mute bilaterally. WORK-UP: Chemistry panel is initial serum glucose is 126, creatinine is 0.65, sodium is 139, calcium is 9.4, AST 39, ALT of 24. PT, PTT and INR were unremarkable. Lipid panel is triglyceride of 91, cholesterol of 166, LDLs 89, HDL of 57. Hemoglobin A1c 6.2 Urinalysis is negative for urinary tract infection Schuster virus PCR was not detected. CT of the head is reported as mild atrophy. Mild chronic small vessel ischemia. No acute intracranial abnormality. I personally reviewed the CT head and I di dn't feel that there is acute ischemia or subacute ischemia. There is no intraparenchymal hemorrhage. CT angiography of the head and neck is reported as negative. Also reported aneurysm of the ascending aorta incompletely evaluated. MRI of the brain is reported as multifocal right-sided acute infarct. In the body of the report is reported that as infarct in the lateral right thalamus, medial posterior right temporal lobe, insular cortex and the right occipital lobe inferiorly. Also no report is reported as background mild diffuse cerebral atrophy and moderate to advanced chronic small vessel ischemic changes are present. CT of the head is reported as no acute intracranial process. Remote lacunar injury of the right cerebellum along nonspecific white matter changes likely secondary to chronic microangiopathy. A CT is not the best study and my personal opinion the 4 cerebellar and that the patient had MRI and there is no stroke seen on the cerebellar region and and had MRI just the a few hours prior to the CT. 2-D echo was reported as moderate concentric left ventricle hypertrophy. Ejection fraction of 50-55%. Left atrial size is normal. - Labs CBC & Chem 7: 10/06/21 05:25 10/06/21 05:25 Labs: Abnormal Lab Results - Last 24 Hours (Table) 10/06/21 10/06/21 10/06/21 Range/Units 05:25 05:25 05:25 Hct 46.6 H (34.0-46.0) % Potassium 3.4 L (3.5-5.1) mmol/L Glucose 115 H (74-99) mg/dL Hemoglobin A1c 6.2 H (0.0-6.0) % Total Bilirubin 2.2 H (0.2-1.3) mg/dL Total Protein 6.2 L (6.3-8.2) g/dL Albumin 3.3 L (3.5-5.0) g/dL Assessment and Plan Assessment: Acute ischemic stroke post IV tpa (on MRI different territories on right hemisphere: lateral right thalamus, medial posterior right temporal lobe, insul ar cortex and the right occipital lobe inferiorly). Presented with left sided weakness and NIH 4. Hypertension Significant Bilateral lower extremity edema Morbid obesity with BMI of 51.6 Plan: Started ASA 81mg and Plavix 75mg daily (was not on antiplatelets or anticoa gulation prior to this admission). Patient to continue dual antiplatelets for 21 days and after 21 days stop Plavix but continue aspirin 81 mg daily. Continue Lipitor 40mg at bedtime for secondary stroke prophylaxis Consulted cardiology team for a transesophageal echocardiogram since the patient had different stroke territories on the right hemisphere. Continue neuro checks PT, OT and SHOT POLISHER are consulted Continue cardiac monitoring Patient was counseled on weight loss. We'll defer the rest of the medical management to the primary and ICU team For DVT prophylaxis: started on subq heparin 5000U every 12 hours. The plan is discussed with the patient and her nurse. Eduard Barron M.D. Neuro-hospitalist Time with Patient: Less than 30
--- NOTE | 2021-10-06 12:58 | P.PN ---
Subjective History of Present Illness Present pleasant 71-year-old female came in with complaints of tingling numbness in the left upper yesterday and lower extremity along with some weakness. Patient received TPA. Patient presently doesn't have any focal deficits patient's strength in the upper limbs both is around 5/5 and lower limbs is around 4/5 patient does have chronic edema which is her chronic venous insufficiency in bilateral lower extremity is for which patient used to take Lasix which she quit taking because it's not working. Patient denied any fever chills headache. Patient had a CT of the head and CT angios the head which showed chronic small vessel ischemia without any acute intracranial abnormality. Denied any speech or vision abnormality. Echocardiogram will be obtained. Neurology was a valid the patient. Lipid panel and globin A1c pending 10/06/2021 Patient had an MRI which showed stroke in multiple areas in the lateral right thalamus medial posterior right temporal lobe, insular cortex, right occipital lobe because of which there is concern of embolic stroke patient will undergo NAVDEEP patient evaluated clinically doing well at this time patient feels better have for peripheral edema improved patient had significant urine output since IV Lasix. Telemetry did not show any atrial fibrillation since Admission echo is essentially within normal limits. Constitutional: Denied any fatigue denied any fever. Cardio vascular: denied any chest pain, palpitations Gastrointestinal denied any nausea vomiting Pulmonary: Denied any shortness of breath cough Neurologic patient has some tingling in the left hand no other focal weakness All inpatient medications were reviewed and appropriate changes in these medications as dictated in the interval history and assessment and plan. PHYSICAL EXAMINATION: GENERAL: The patient is alert and oriented x3, not in any acute distress. Well developed, well nourished. HEENT: Pupils are round and equally reacting to light. EOMI. No scleral icterus. No conjunctival pallor. Normocephalic, atraumatic. No pharyngeal erythema. No thyromegaly. CARDIOVASCULAR: S1 and S2 present. No murmurs, rubs, or gallops. PULMONARY: Chest is clear to auscultation, no wheezing or crackles. ABDOMEN: Soft, nontender, nondistended, normoactive bowel sounds. No palpable organomegaly. MUSCULOSKELETAL: No joint swelling or deformity. EXTREMITIES: No cyanosis, clubbing, bilateral lower extremity edema improved NEUROLOGICAL: Gross neurological examination did not reveal any focal deficits. SKIN: No rashes. Assessment and plan - cerebral vascular accident involving the left side of the body and right cerebral hemisphere. Patient received TPA with complete resolution of symptoms. Physical therapy occupational therapy, and neurology will evaluate the patient. Lipid panel showed LDL of 89, echocardiogram within normal limits, hemoglobin A1c 6.2, MRI showed possible embolic stroke and patient will undergo NAVDEEP -Morbid obesity -Chronic venous insufficiency of bilateral lower extremity without any evidence of congestive heart failure: Significant improvement with IV Lasix and patient Lasix was cut down to 20 mg daily -Hypokalemia secondary to Lasix replaced DVT prophylaxis: SCDs as patient received TPA Objective - Vital Signs Vital signs: Vital Signs Temp 98.7 F 10/06/21 08:00 Pulse 84 10/06/21 12:00 Resp 16 10/06/21 12:00 BP 98/73 10/06/21 12:00 Pulse Ox 94 L 10/06/21 12:00 Intake & Output 10/05/21 10/06/21 10/06/21 18:59 06:59 18:59 Intake Total 400 Output Total 3210 1310 410 Balance -2810 -1310 -410 Weight 141.8 kg Intake: IV 400 Sodium Chloride 0.9% 1, 400 000 ml @ 100 mls/hr IV . Q10H PACO Rx#:[id number] Output: Urine 3210 1310 410 Other: Voiding Method Indwelling Catheter Indwelling Catheter Indwelling Catheter # Bowel Movements 1 - Labs CBC & Chem 7: 10/06/21 05:25 10/06/21 05:25 Labs: Abnormal Lab Results - Last 24 Hours (Table) 10/06/21 10/06/21 10/06/21 Range/Units 05:25 05:25 05:25 Hct 46.6 H (34.0-46.0) % Potassium 3.4 L (3.5-5.1) mmol/L Glucose 115 H (74-99) mg/dL Hemoglobin A1c 6.2 H (0.0-6.0) % Total Bilirubin 2.2 H (0.2-1.3) mg/dL Total Protein 6.2 L (6.3-8.2) g/dL Albumin 3.3 L (3.5-5.0) g/dL
[2021-10-06] MEDS: FUROSEMIDE 10 MG/ML 2 ML VIAL IV SCH (16:51)
[2021-10-06] MEDS: ALPRAZolam 0.25 MG TAB PO PRN (21:30)
[2021-10-06] MEDS: ATORVASTATIN 40 MG TAB PO SCH (21:30)
[2021-10-07] MEDS ORDERED: FUROSEMIDE 10 MG/ML 2 ML VIAL IV SCH (09:00)
[2021-10-07] MEDS ORDERED: fentaNYL (PF) 50 MCG/ML 2 ML AMP ONE (10:09)
[2021-10-07] MEDS ORDERED: SODIUM CHLORIDE 0.9% 500 ML 500 ML IV ONE (10:15)
--- NOTE | 2021-10-07 10:30 | P.PN ---
Subjective Progress Note Date: 10/07/21 The patient is seen at bedside and feels she is doing well and denies any new neurological problems. She feels her pitting edema on lower extremities is improving. She is scheduled for NAVDEEP today AM. Objective - Vital Signs Vital signs: Vital Signs Temp 98.4 F 10/07/21 03:56 Pulse 72 10/07/21 03:56 Resp 18 10/07/21 03:56 BP 123/75 10/07/21 03:56 Pulse Ox 96 10/07/21 03:56 Intake & Output 10/06/21 10/07/21 10/07/21 18:59 06:59 18:59 Intake Total 480 Output Total 820 300 Balance -340 -300 Weight 126.5 kg Intake: Oral 480 Output: Urine 820 300 Other: Voiding Method Indwelling Catheter Bedside Commode # Bowel Movements 1 - Exam GENERAL: The patient is a morbid obese woman, lying in bed and is not in acute distress. NEUROLOGICAL: Higher mental function: The patient is awake, alert, oriented to self, place and time. Patient is following simple commands. No aphasia and no neglect. Cranial nerves: The pupils are round, equal and reactive to light. Visual stubbs are full to confrontation throughout. Extraocular movement is intact no nystagmus is noted. Facial sensation is normal to touch throughout. The facial strength is normal throughout. Hearing is normal bilaterally to hand rub. To ngue is midline and moved [id number] without any difficulty. No dysarthria is noted. Motor: Gait is deferred. The strength is left upper extremity is 4+ to 5- and left hand floorman is 5-. There is slight drift on left upper. Otherwise normal strength throughout uppers. Lowers is able to lift above gravity without drift. Normal tone and bulk. Has significant edema of bilateral lower extre mities. Cerebellum: Normal finger to nose heel to zelaya bilaterally. Sensation: Sensation is normal to touch throughout. Reflexes (right/left): 2+ throughout upper while lowers are 1+ (has significant edema). Plantars are mute bilaterally. WORK-UP: Chemistry panel is initial serum glucose is 126, creatinine is 0.65, sodium is 139, calcium is 9.4, AST 39, ALT of 24. PT, PTT and INR were unremarkable. Lipid panel is triglyceride of 91, cholesterol of 166, LDLs 89, HDL of 57. Hemoglobin A1c 6.2 Urinalysis is negative for urinary tract infection Schusetr virus PCR was not detected. CT of the head is reported as mild atrophy. Mild chronic small vessel ischemia. No acute intracranial abnormality. I personally reviewed the CT head and I didn't feel that there is acute ischemia or subacute ischemia. There is no intraparenchymal hemorrhage. CT angiography of the head and neck is reported as negative. Also reported aneurysm of the ascending aorta incompletely evaluated. MRI of the brain is reported as multifocal right-sided acute infarct. In the body of the report is reported that as infarct in the lateral right thalamus, medial posterior right temporal lobe, insular cortex and the right occipital lobe inferiorly. Also no report is reported as background mild diffuse cerebral atrophy and moderate to advanced chronic small vessel ischemic changes are present. CT of the head is reported as no acute intracranial process. Remote lacunar injury of the right cerebellum along nonspecific white matter changes likely secondary to chronic microangiopathy. A CT is not the best study and my personal opinion the 4 cerebellar and that the patient had MRI and there is no stroke seen on the cerebellar region and and had MRI just the a few hours prior to the CT. 2-D echo was reported as moderate concentric left ventricle hypertrophy. Ejection fraction of 50-55%. Left atrial size is normal. - Labs CBC & Chem 7: 10/06/21 05:25 10/06/21 05:25 Assessment and Plan Assessment: * Acute ischemic stroke post IV tpa (on MRI different territories on right hemisphere: lateral right thalamus, medial posterior right temporal lobe, insular cortex and the right occipital lobe inferiorly). Presented with left sided weakness and NIH 4. Etiology seems emblic. * Hypertension * Significant chronic Bilateral peripheral edema * Morbid obesity with BMI of 51.6 Plan: Continue ASA 81mg and Plavix 75mg daily (was not on antiplatelets or anticoagulation prior to this admission). Patient to continue dual antiplatelets for 21 days and after 21 days stop Plavix but continue aspirin 81 mg daily. Continue Lipitor 40mg at bedtime for secondary stroke prophylaxis Consulted cardiology team for a transesophageal echocardiogram since the patient had different stroke territories on the right hemisphere. NAVDEEP scheduled today. Consider event monitor for 30 days or loop recorder and follow-up with cardiology as outpatient. Continue neuro checks PT, OT and [employer] are consulted Continue cardiac monitoring Patient was counseled on weight loss. We'll defer the rest of the medical management to the primary and ICU team For DVT prophylaxis: started on subq heparin 5000U every 12 hours. Upon discharge, patient to follow-up with a neurologist within 1-2 weeks as outpatient. The plan is discussed with the patient and her nurse. Eduard Barron M.D. Neuro-hospitalist Time with Patient: Less than 30
[2021-10-07] MEDS ORDERED: BENZOCAINE SPRAY 1 CAN MUCOUS MEM ONE (10:32)
[2021-10-07] MEDS ORDERED: fentaNYL (PF) 50 MCG/ML 2 ML AMP IV ONE (10:34)
[2021-10-07] MEDS ORDERED: MIDAZOLAM 2 MG/2 ML VIAL IV ONE (10:34)
[2021-10-07] MEDS: MIDAZOLAM 2 MG/2 ML VIAL IV ONE ×2 (10:35→10:38)
--- NOTE | 2021-10-07 11:28 | P.PN ---
Subjective Progress Note Date: 10/07/21 PROGRESS NOTE The patient is a 71-year-old female who presented with symptoms of CVA, she received TPA with improvement in her symptoms. She continues to have some numbness in the left hand. She is in sinus mechanism with no evidence of atrial fibrillation. Hemodynamically she is stable. She continues to be on aspirin once a day, Lipitor 40 mg daily, Plavix and 5 mg daily, Lasix 20 mg IV daily. 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 PHYSICAL EXAMINATION: Blood pressure 147/70 heart rate [78] obese LUNGS: [Clear to auscultation] HEART: [Regular rate and rhythm, S1, S2. No S3. No systolic murmur] ABDOMEN: [Soft, nontender, no organomegaly] EXTREMETIES: [1+ edema] IMPRESSION: 1. [ Status post CVA with TPA treatment] 2. [ Chronic peripheral edema] 3. [ History of hypertension] 4. [ Obesity] PLAN: 1. Add losartan for blood pressure control 2. Change to oral diuretics 3. No evidence of intracardiac thrombus, from the cardiac standpoint we will see as an outpatient for further cardiac evaluation. Please feel free to call us for any question. Objective - Vital Signs Vital signs: Vital Signs Temp 98.1 F 10/07/21 08:00 Pulse 78 10/07/21 10:24 Resp 18 10/07/21 08:00 BP 147/78 10/07/21 10:24 Pulse Ox 97 10/07/21 10:24 Intake & Output 10/06/21 10/07/21 10/07/21 18:59 06:59 18:59 Intake Total 480 150 Output Total 820 300 Balance -340 -300 150 Weight 126.5 kg Intake: IV 150 Oral 480 Output: Urine 820 300 Other: Voiding Method Indwelling Catheter Bedside Commode Bedside Commode # Bowel Movements 1 - Labs CBC & Chem 7: 10/06/21 05:25 10/06/21 05:25
--- NOTE | 2021-10-07 11:32 | P.PCN ---
Date of Procedure: 10/07/21 Description of Procedure: Indication: [Evaluation of cardiac source for CVA] Procedure Description: After explaining the procedure to the patient, it's risk and complications, blood pressure, heart rate and O2 saturation were monitored. The throat was sprayed with Cetacaine. Patient received [4]mg intravenous Versed, [50]mcg intravenous fentanyl. The probe was introduced into the esophagus without difficulty. Images were obtained. Following that, the probe was removed. There was no immediate complication. Findings: [Left atrial size is normal, left atrial appendage is normal. The ventricle size and systolic function are normal and there was no segmental wall motion abnormalities. The aortic valve revealed fibrocalcific changes of the aortic cusp was preserved opening, mild tenderness consultation was noted. The tricuspid valve is normal. Intra-atrial septum is aneurysmal. Descending thor acic aorta appears to be normal, no pericardial effusion was noted. Bubble study was suboptimal. Doppler: Pulse wave and color Doppler were obtained and showed mild mitral and tricuspid regurgitation, there is no shunting by color Doppler study.] Conclusion: 1. [ Normal left atrial appendage] 2. [ Normal size and systolic function] 3. [ Aneurysmal intra-atrial septum with no shunting] 4. [ Mild mitral and tricuspid regurgitation] 5. [ Normal appearance of the descending thoracic aorta.]
[2021-10-07] MEDS: HEPARIN SODIUM,PORCINE/PF 5,000 UNIT/0.5 ML SYRINGE SQ SCH ×2 (11:44→21:59)
[2021-10-07] MEDS: CLOPIDOGREL 75 MG TAB PO SCH (11:45)
[2021-10-07] MEDS: PANTOPRAZOLE 40 MG/10 ML VIAL IVP SCH (11:45)
[2021-10-07] MEDS: LOSARTAN 50 MG TAB PO SCH (11:47)
[2021-10-07] MEDS: ASPIRIN 81 MG PO SCH (11:47)
[2021-10-07] MEDS ORDERED: FUROSEMIDE 10 MG/ML 4 ML VIAL IV STA (11:51)
--- NOTE | 2021-10-07 12:35 | P.PN ---
Subjective History of Present Illness Present pleasant 71-year-old female came in with complaints of tingling numbness in the left upper yesterday and lower extremity along with some weakness. Patient received TPA. Patient presently doesn't have any focal deficits patient's strength in the upper limbs both is around 5/5 and lower limbs is around 4/5 patient does have chronic edema which is her chronic venous insufficiency in bilateral lower extremity is for which patient used to take Lasix which she quit taking because it's not working. Patient denied any fever chills headache. Patient had a CT of the head and CT angios the head which showed chronic small vessel ischemia without any acute intracranial abnormality. Denied any speech or vision abnormality. Echocardiogram will be obtained. Neurology was a valid the patient. Lipid panel and globin A1c pending 10/06/2021 Patient had an MRI which showed stroke in multiple areas in the lateral right thalamus medial posterior right temporal lobe, insular cortex, right occipital lobe because of which there is concern of embolic stroke patient will undergo NAVDEEP patient evaluated clinically doing well at this time patient feels better have for peripheral edema improved patient had significant urine output since IV Lasix. Telemetry did not show any atrial fibrillation since Admission echo is essentially within normal limits. 10/07/2021 Patient had a NAVDEEP which did not show any intravascular thrombus. Patient will be resumed on aspirin. Patient the probably will be discharged on Saturday to subacute rehabilitation patient still has significant swelling in bilateral lower extremities. Constitutional: Denied any fatigue denied any fever. Cardio vascular: denied any chest pain, palpitations Gastrointestinal denied any nausea vomiting Pulmonary: Denied any shortness of breath cough Neurologic patient has some tingling in the left hand no other focal weakness All inpatient medications were reviewed and appropriate changes in these medications as dictated in the interval history and assessment and plan. PHYSICAL EXAMINATION: GENERAL: The patient is alert and oriented x3, not in any acute distress. Well developed, well nourished. HEENT: Pupils are round and equally reacting to light. EOMI. No scleral icterus. No conjunctival pallor. Normocephalic, atraumatic. No pharyngeal erythema. No thyromegaly. CARDIOVASCULAR: S1 and S2 present. No murmurs, rubs, or gallops. PULMONARY: Chest is clear to auscultation, no wheezing or crackles. ABDOMEN: Soft, nontender, nondistended, normoactive bowel sounds. No palpable organomegaly. MUSCULOSKELETAL: No joint swelling or deformity. EXTREMITIES: No cyanosis, clubbing, bilateral lower extremity edema improved NEUROLOGICAL: Gross neurological examination did not reveal any focal deficits. SKIN: No rashes. Assessment and plan - cerebral vascular accident involving the left side of the body and right cerebral hemisphere. Patient received TPA with complete resolution of symptoms. Physical therapy occupational therapy, and neurology following the patient. Lipid panel showed LDL of 89, echocardiogram within normal limits, hemoglobin A1c 6.2, MRI showed possible embolic stroke and patient did undergo NAVDEEP which did not show any dramatic thrombus patient is being resumed on aspirin -Morbid obesity -Chronic venous insufficiency of bilateral lower extremity without any evidence of congestive heart failure: Continue with diuretics -Hypokalemia secondary to Lasix replaced DVT prophylaxis: Subcutaneous heparin Objective - Vital Signs Vital signs: Vital Signs Temp 98.2 F 10/07/21 12:00 Pulse 83 10/07/21 12:00 Resp 16 10/07/21 12:00 BP 159/100 10/07/21 12:00 Pulse Ox 94 L 10/07/21 12:00 Intake & Output 10/06/21 10/07/21 10/07/21 18:59 06:59 18:59 Intake Total 480 150 Output Total 820 300 Balance -340 -300 150 Weight 126.5 kg Intake: IV 150 Oral 480 Output: Urine 820 300 Other: Voiding Method Indwelling Catheter Bedside Commode Bedside Commode # Bowel Movements 1 - Labs CBC & Chem 7: 10/06/21 05:25 10/06/21 05:25
--- NOTE | 2021-10-07 13:08 | P.PN ---
Subjective Progress Note Date: 10/07/21 71-year-old here patient with an acute stroke post TPA administration. The patient had a MRI of the brain that showed multiple areas in the lateral right thalamus and medial posterior right temporal lobe, insular cortex and right occipital lobe and this obviously raises the concern for embolic phenomena. The patient is to undergo NAVDEEP today. She continues to have some weakness in her left and numbness. She is ambulating. No palpitations. No cardiac arrhythmias have been noted. No headaches. The patient remains on a combination of aspirin and Plavix. No other significant events otherwise. She is afebrile. She is hemodynamically stable. She was transferred out of the intensive care units.. She is still having edema in lower extremity is and the patient continues to diurese IV Lasix. Objective - Vital Signs Vital signs: Vital Signs Temp 98.2 F 10/07/21 12:00 Pulse 83 10/07/21 12:00 Resp 16 10/07/21 12:00 BP 159/100 10/07/21 12:00 Pulse Ox 94 L 10/07/21 12:00 Intake & Output 10/06/21 10/07/21 10/07/21 18:59 06:59 18:59 Intake Total 480 150 Output Total 820 300 Balance -340 -300 150 Weight 126.5 kg Intake: IV 150 Oral 480 Output: Urine 820 300 Other: Voiding Method Indwelling Catheter Bedside Commode Bedside Commode # Bowel Movements 1 - Exam GENERAL EXAM: Alert, very pleasant, morbidly obese 71-year-old white female, breathing currently, oriented 3, without gross neurological deficits on room air with pulse ox of 95%, comfortable in no apparent distress. HEAD: Normocephalic/atraumatic. EYES: Normal reaction of pupils, equal size. Conjunctiva pink, sclera white. NOSE: Clear with pink turbinates. THROAT: No erythema or exudates. NECK: No masses, no JVD, no thyroid enlargement, no adenopathy. CHEST: No chest wall deformity. Symmetrical expansion. LUNGS: Equal air entry with no crackles, wheeze, rhonchi or dullness. CVS: Regular rate and rhythm, normal S1 and S2, no gallops, no murmurs, no rubs ABDOMEN: Soft, nontender. No hepatosplenomegaly, normal bowel sounds, no guarding or rigidity. EXTREMITIES: No clubbing, 1+ bilateral lower extremity edema, no cyanosis, 2+ pulses and upper and lower extremities. MUSCULOSKELETAL: Muscle strength and tone normal. SPINE: No scoliosis or deformity SKIN: No rashes CENTRAL NERVOUS SYSTEM: Alert and oriented -3. No focal deficits, tone is normal in all 4 extremities. Neurologically symptoms have significantly improved, since admission, she does have residual numbness in the left hand, no numbness in the face, no asymmetry, speech is normal, no swallowing difficulty, strength is equal bilaterally in upper and lower extremities PSYCHIATRIC: Alert and oriented -3. Appropriate affect. Intact judgment and insight. - Labs CBC & Chem 7: 10/06/21 05:25 10/06/21 05:25 Assessment and Plan Plan: #1. Acute CVA, with left-sided weakness and numbness, with NIH score 4 on presentation, status post IV alteplase on 10/04/2021, with improvement in NIH score, which is currently down to 0. Brain MRI on 10/05/2021 showed a multifocal right-sided acute infarcts with background mild diffuse cerebral atrophy and moderate to advanced chronic small vessel ischemic changes. Follow-up brain CT on 10/05/2021 showed no acute intracranial process, and a remote lacunar injury to the right cerebellum along with nonspecific white matter changes possibly related to microangiopathy. MRI of the brain was noted and showed multiple areas in the lateral right thalamus medial posterior right temporal lobe, insular cortex, right occipital lobe because of which there is concern of embolic stroke . The patient is to undergo NAVDEEP today. #2. Hypertension #3. Chronic bilateral lower extremity edema, improved with diuretics and the patient is currently on Lasix #4. Morbid obesity with BMI of 51.6 kg/m #5. Nonsmoker Plan Continue diuretics and switch Lasix to oral NAVDEEP today, to rule out any cardiac embolic source of CVA Continue aspirin and Plavix Heparin subcu for DVT prophylaxis Pulmonary critical care services we'll sign off
[2021-10-07] MEDS: POTASSIUM CHLORIDE ER 20 MEQ TAB.ER PO SCH ×2 (13:53→18:50)
[2021-10-07] MEDS: traMADol 50 MG TAB PO PRN (14:46)
--- NOTE | 2021-10-07 16:16 | XR ---
EXAMINATION TYPE: XR KUB portable DATE OF EXAM: 10/07/2021 3:27 PM CLINICAL HISTORY: Possible stone TECHNIQUE: Single supine KUB image of the abdomen is obtained. COMPARISON: None. FINDINGS: Limited exam secondary to patient body habitus. Scattered gas is seen in nondilated colon. There is no abnormal calcification appreciated. IMPRESSION: Exam limited due to patient body habitus. Nonobstructive bowel gas pattern. No suspicious calcification.
[2021-10-07 18:39] LABS: Calcium 9.3 mg/dL (8.4-10.2)
[2021-10-07 18:46] LABS: Potassium 4.6 mmol/L (3.5-5.1)
[2021-10-07] MEDS: ALPRAZolam 0.25 MG TAB PO PRN (21:46)
[2021-10-07] MEDS ORDERED: ATORVASTATIN 40 MG TAB PO STA (21:55)
[2021-10-08] MEDS: traMADol 50 MG TAB PO PRN (01:16)
[2021-10-08] MEDS: HYDROcodone/APAP 7.5-325MG 1 EACH TAB PO PRN ×3 (03:01→21:14)
[2021-10-08] MEDS: ASPIRIN 81 MG PO SCH (08:10)
[2021-10-08] MEDS: LOSARTAN 50 MG TAB PO SCH (08:10)
[2021-10-08] MEDS: HEPARIN SODIUM,PORCINE/PF 5,000 UNIT/0.5 ML SYRINGE SQ SCH ×2 (08:10→21:15)
[2021-10-08] MEDS: ALPRAZolam 0.25 MG TAB PO PRN ×2 (08:11→21:14)
[2021-10-08] MEDS: PANTOPRAZOLE 40 MG/10 ML VIAL IVP SCH (08:11)
[2021-10-08] MEDS: CLOPIDOGREL 75 MG TAB PO SCH (08:11)
--- NOTE | 2021-10-08 08:57 | P.PN ---
Subjective History of Present Illness Present pleasant 71-year-old female came in with complaints of tingling numbness in the left upper yesterday and lower extremity along with some weakness. Patient received TPA. Patient presently doesn't have any focal deficits patient's strength in the upper limbs both is around 5/5 and lower limbs is around 4/5 patient does have chronic edema which is her chronic venous insufficiency in bilateral lower extremity is for which patient used to take Lasix which she quit taking because it's not working. Patient denied any fever chills headache. Patient had a CT of the head and CT angios the head which showed chronic small vessel ischemia without any acute intracranial abnormality. Denied any speech or vision abnormality. Echocardiogram will be obtained. Neurology was a valid the patient. Lipid panel and globin A1c pending 10/06/2021 Patient had an MRI which showed stroke in multiple areas in the lateral right thalamus medial posterior right temporal lobe, insular cortex, right occipital lobe because of which there is concern of embolic stroke patient will undergo NAVDEEP patient evaluated clinically doing well at this time patient feels better have for peripheral edema improved patient had significant urine output since IV Lasix. Telemetry did not show any atrial fibrillation since Admission echo is essentially within normal limits. 10/07/2021 Patient had a NAVDEEP which did not show any intravascular thrombus. Patient will be resumed on aspirin. Patient the probably will be discharged on Saturday to subacute rehabilitation patient still has significant swelling in bilateral lower extremities. 10/08/2021 Patient's right flank pain is much better today patient was complaining of right flank pain is fairly today I ordered a KUB x-rays did not show any stone but patient believes she has a stone and may have passed now her. Patient's urine output is good the patient is presently on oral Lasix 20 daily which will be switched to twice a day. Patient will be started on nystatin for candidal intertrigo. Patient tingling numbness improved even compared to yesterday. Constitutional: Denied any fatigue denied any fever. Cardio vascular: denied any chest pain, palpitations Gastrointestinal denied any nausea vomiting Pulmonary: Denied any shortness of breath cough Neurologic patient has some tingling in the left hand no other focal weakness All inpatient medications were reviewed and appropriate changes in these medications as dictated in the interval history and assessment and plan. PHYSICAL EXAMINATION: GENERAL: The patient is alert and oriented x3, not in any acute distress. Well developed, well nourished. HEENT: Pupils are round and equally reacting to light. EOMI. No scleral icterus. No conjunctival pallor. Normocephalic, atraumatic. No pharyngeal erythema. No thyromegaly. CARDIOVASCULAR: S1 and S2 present. No murmurs, rubs, or gallops. PULMONARY: Chest is clear to auscultation, no wheezing or crackles. ABDOMEN: Soft, nontender, nondistended, normoactive bowel sounds. No palpable organomegaly. MUSCULOSKELETAL: No joint swelling or deformity. EXTREMITIES: No cyanosis, clubbing, bilateral lower extremity edema improved NEUROLOGICAL: Gross neurological examination did not reveal any focal deficits. SKIN: No rashes. Assessment and plan - cerebral vascular accident involving the left side of the body and right cerebral hemisphere. Patient received TPA with complete resolution of symptoms. Physical therapy occupational therapy, and neurology following the patient. Lipid panel showed LDL of 89, echocardiogram within normal limits, hemoglobin A1c 6.2, MRI showed possible embolic stroke and patient did undergo NAVDEEP which did not show any dramatic thrombus patient is being resumed on aspirin -possible nephrolithiasis and the patient appears to have passed the stone -Morbid obesity -Chronic venous insufficiency of bilateral lower extremity without any evidence of congestive heart failure: Continue with diuretics -Hypokalemia secondary to Lasix replaced DVT prophylaxis: Subcutaneous heparin Objective - Vital Signs Vital signs: Vital Signs Temp 97.4 F L 10/08/21 04:00 Pulse 67 10/08/21 04:00 Resp 18 10/08/21 04:00 BP 147/70 10/08/21 04:00 Pulse Ox 93 L 10/08/21 04:00 Intake & Output 10/07/21 10/08/21 10/08/21 18:59 06:59 18:59 Intake Total 150 Output Total 400 400 Balance -250 -400 Intake: IV 150 Output: Urine 400 400 Other: Voiding Method Bedside Commode Bedside Commode External Catheter # Bowel Movements 1 0 - Labs CBC & Chem 7: 10/06/21 05:25 10/07/21 16:49 Labs: Abnormal Lab Results - Last 24 Hours (Table) 10/07/21 Range/Units 16:49 BUN 25 H (7-17) mg/dL Glucose 131 H (74-99) mg/dL
[2021-10-08] MEDS ORDERED: FUROSEMIDE 20 MG TAB PO SCH (09:00)
[2021-10-08] MEDS: NYSTATIN 100,000 UNIT/GM POWD 15 GM TOPICAL SCH ×2 (09:28→21:14)
--- NOTE | 2021-10-08 11:49 | P.PN ---
Subjective Progress Note Date: 10/08/21 The patient is seen at bedside and she feels she feels she is doing better today and feels better on daily basis. Objective - Vital Signs Vital signs: Vital Signs Temp 98.4 F 10/08/21 11:43 Pulse 62 10/08/21 11:43 Resp 16 10/08/21 11:43 BP 159/81 10/08/21 11:43 Pulse Ox 99 10/08/21 11:43 Intake & Output 10/07/21 10/08/21 10/08/21 18:59 06:59 18:59 Intake Total 150 Output Total 400 400 Balance -250 -400 Weight 137.2 kg Intake: IV 150 Output: Urine 400 400 Other: Voiding Method Bedside Commode Bedside Commode Bedside Commode External Catheter External Catheter # Bowel Movements 1 0 0 - Exam GENERAL: The patient is a morbid obese woman, lying in bed and is not in acute distress. NEUROLOGICAL: Higher mental function: The patient is awake, alert, oriented to self, place and time. Patient is following simple commands. No aphasia and no neglect. Cranial nerves: The pupils are round, equal and reactive to light. Visual stubbs are full to confrontation throughout. Extraocular movement is intact no nystagmus is noted. Facial sensation is normal to touch throughout. The facial strength is normal throughout. Hearing is normal bilaterally to hand rub. Tongue is midline and moved [id number] without any difficulty. No dysarthria is noted. Motor: Gait is deferred. The strength is left upper extremity is 4+ to 5- and left hand b2b appointment setter is 5-. There is slight drift on left upper. Otherwise normal strength throughout uppers. Lowers is able to lift above gravity without drift. Normal tone and bulk. Has significant edema of bilateral lower extremities. Cerebellum: Normal finger to nose heel to zelaya bilaterally. Sensation: Sensation is normal to touch throughout. Reflexes (right/left): 2+ throughout upper while lowers are 1+ (has significant edema). Plantars are mute bilaterally. WORK-UP: Chemistry panel is initial serum glucose is 126, creatinine is 0.65, sodium is 139, calcium is 9.4, AST 39, ALT of 24. PT, PTT and INR were unremarkable. Lipid panel is triglyceride of 91, cholesterol of 166, LDLs 89, HDL of 57. Hemoglobin A1c 6.2 Urinalysis is negative for urinary tract infection Schuster virus PCR was not detected. CT of the head is reported as mild atrophy. Mild chronic small vessel ischemia. No acute intracranial abnormality. I personally reviewed the CT head and I didn't feel that there is acute ischemia or subacute ischemia. There is no intraparenchymal hemorrhage. CT angiography of the head and neck is reported as negative. Also reported aneurysm of the ascending aorta incompletely evaluated. MRI of the brain is reported as multifocal right-sided acute infarct. In the body of the report is reported that as infarct in the lateral right thalamus, medial posterior right temporal lobe, insular cortex and the right occipital lobe inferiorly. Also no report is reported as background mild diffuse cerebral atrophy and moderate to advanced chronic small vessel ischemic changes are present. CT of the head is reported as no acute intracranial process. Remote lacunar injury of the right cerebellum along nonspecific white matter changes likely secondary to chronic microangiopathy. A CT is not the best study and my personal opinion the 4 cerebellar and that the patient had MRI and there is no stroke seen on the cerebellar region and and had MRI just the a few hours prior to the CT. 2-D echo was reported as moderate concentric left ventricle hypertrophy. Ejection fraction of 50-55%. Left atrial size is normal. NAVDEEP on 10/07/21: Is reported as Normal left atrial appendage. Normal sizre and systolic function. Aneurysmal intra-atrial septum with no shunting. - Labs CBC & Chem 7: 10/06/21 05:25 10/07/21 16:49 Labs: Abnormal Lab Results - Last 24 Hours (Table) 10/07/21 Range/Units 16:49 BUN 25 H (7-17) mg/dL Glucose 131 H (74-99) mg/dL Assessment and Plan Assessment: * Acute ischemic stroke post IV tpa (on MRI different territories on right hemisphere: lateral right thalamus, medial posterior right temporal lobe, insular cortex and the right occipital lobe inferiorly). Presented with left sided weakness and NIH 4. Etiology seems emblic. * Hypertension * Significant chronic Bilateral peripheral edema--improving on this admission * Morbid obesity with BMI of 51.6 Plan: * Continue ASA 81mg and Plavix 75mg daily (was not on antiplatelets or anticoagu lation prior to this admission). Patient to continue dual antiplatelets for 21 days and after 21 days stop Plavix but continue aspirin 81 mg daily. Continue Lipitor 40mg at bedtime for secondary stroke prophylaxis * Consulted cardiology team for a transesophageal echocardiogram since the patient had different stroke territories on the right hemisphere. NAVDEEP on 10/07/2021: No shunting and normal left atrial appendage. * Consider event monitor for 30 days or loop recorder and follow-up with cardio logy as outpatient. * Continue neuro checks * PT, OT and MANAGER RN CASE are consulted * Continue cardiac monitoring. So far no A-fib or flutter. * Patient was counseled on weight loss. * We'll defer the rest of the medical management to the primary and ICU team * For DVT prophylaxis: started on subq heparin 5000U every 12 hours. * Upon discharge, patient to follow-up with a neurologist within 1-2 weeks as outpatient. The plan is discussed with the patient and her nurse. There is no further neurology work-up. Patient is clear from neurological perspective. Please notify neurology if any further concerns. Eduard Barron M.D. Neuro-hospitalist Time with Patient: Less than 30
[2021-10-08] MEDS: FUROSEMIDE 20 MG TAB PO SCH (21:14)
[2021-10-08] MEDS: ATORVASTATIN 40 MG TAB PO SCH (21:14)
[2021-10-09] MEDS: HEPARIN SODIUM,PORCINE/PF 5,000 UNIT/0.5 ML SYRINGE SQ SCH ×2 (09:56→20:17)
[2021-10-09] MEDS: CLOPIDOGREL 75 MG TAB PO SCH (09:56)
[2021-10-09] MEDS: LOSARTAN 50 MG TAB PO SCH (09:56)
[2021-10-09] MEDS: ASPIRIN 81 MG PO SCH (09:56)
[2021-10-09] MEDS: PANTOPRAZOLE 40 MG/10 ML VIAL IVP SCH (09:56)
[2021-10-09] MEDS: ALPRAZolam 0.25 MG TAB PO PRN ×2 (09:56→20:17)
[2021-10-09] MEDS: FUROSEMIDE 20 MG TAB PO SCH ×2 (09:56→20:17)
[2021-10-09] MEDS: NYSTATIN 100,000 UNIT/GM POWD 15 GM TOPICAL SCH ×2 (09:57→20:17)
--- NOTE | 2021-10-09 13:07 | P.DS ---
Providers Date of admission: 10/04/21 19:41 Attending physician: Gil Cervantes Consults: 10/04/21 19:42 Consult Physician Routine Consulting Provider: Ish Quinones Consult Reason/Comments: cva with tpa Do you want consulting provider notified?: Already Contacted Consult Physician Routine Consulting Provider: Eduard Barron Consult Reason/Comments: CVA with TPA Do you want consulting provider notified?: Already Contacted 10/06/21 08:16 Consult Physician Routine Consulting Provider: Micah Chiang Consult Reason/Comments: NAVDEEP. Stroke multiple territories Right hemisphere Do you want consulting provider notified?: Yes Primary care physician: [facility] Course: Present pleasant 71-year-old female came in with complaints of tingling numbness in the left upper yesterday and lower extremity along with some weakness. Patient received TPA. Patient presently doesn't have any focal deficits patient's strength in the upper limbs both is around 5/5 and lower limbs is around 4/5 patient does have chronic edema which is her chronic venous insufficiency in bilateral lower extremity is for which patient used to take Lasix which she quit taking because it's not working. Patient denied any fever chills headache. Patient had a CT of the head and CT angios the head which showed chronic small vessel ischemia without any acute intracranial abnormality. Denied any speech or vision abnormality. Echocardiogram will be obtained. Neurology was a valid the patient. Lipid panel and globin A1c pending 10/06/2021 Patient had an MRI which showed stroke in multiple areas in the lateral right thalamus medial posterior right temporal lobe, insular cortex, right occipital lobe because of which there is concern of embolic stroke patient will undergo NAVDEEP patient evaluated clinically doing well at this time patient feels better have for peripheral edema improved patient had significant urine output since IV Lasix. Telemetry did not show any atrial fibrillation since Admission echo is essentially within normal limits. 10/07/2021 Patient had a NAVDEEP which did not show any intravascular thrombus. Patient will be resumed on aspirin. Patient the probably will be discharged on Saturday to subacute rehabilitation patient still has significant swelling in bilateral lower extremities. 10/08/2021 Patient's right flank pain is much better today patient was complaining of right flank pain is fairly today I ordered a KUB x-rays did not show any stone but patient believes she has a stone and may have passed now her. Patient's urine output is good the patient is presently on oral Lasix 20 daily which will be switched to twice a day. Patient will be started on nystatin for candidal intertrigo. Patient tingling numbness improved even compared to yesterday. 10/09/2021 Patient is clinically doing well and is being discharged today to subacute rehabitation. Patient is bit anxious. Neurology is recommending aspirin and Plavix for 21 days followed by just aspirin 81 mg. PHYSICAL EXAMINATION: GENERAL: The patient is alert and oriented x3, not in any acute distress. Well developed, well nourished. HEENT: Pupils are round and equally reacting to light. EOMI. No scleral icterus. No conjunctival pallor. Normocephalic, atraumatic. No pharyngeal erythema. No thyromegaly. CARDIOVASCULAR: S1 and S2 present. No murmurs, rubs, or gallops. PULMONARY: Chest is clear to auscultation, no wheezing or crackles. ABDOMEN: Soft, nontender, nondistended, normoactive bowel sounds. No palpable organomegaly. MUSCULOSKELETAL: No joint swelling or deformity. EXTREMITIES: No cyanosis, clubbing, bilateral lower extremity edema improved NEUROLOGICAL: Gross neurological examination did not reveal any focal deficits. SKIN: No rashes. Assessment and plan - cerebral vascular accident involving the left side of the body and right cerebral hemisphere. Patient received TPA with complete resolution of symptoms. t. Lipid panel showed LDL of 89, echocardiogram within normal limits, hemoglobin A1c 6.2, MRI showed possible embolic stroke and patient did undergo NAVDEEP which did not show any ventricular thrombus. -possible nephrolithiasis and the patient appears to have passed the stone -Morbid obesity -Chronic venous insufficiency of bilateral lower extremity without any evidence of congestive heart failure: Continue with diuretics Patient Condition at Discharge: Serious Plan - Discharge Summary Discharge Rx Participant: Yes New Discharge Prescriptions: New Aspirin 81 mg PO DAILY Nystatin 100,000 Unit/gm Powd [Mycostatin Powder] 1 applic TOPICAL BID ALPRAZolam [Xanax] 0.25 mg PO BID PRN #10 tab PRN Reason: Anxiety Furosemide [Lasix] 20 mg PO BID tab Atorvastatin [Lipitor] 40 mg PO HS tab Clopidogrel [Plavix] 75 mg PO DAILY tab traMADol HCl [Ultram] 50 mg PO QID PRN #20 tab PRN Reason: Breakthrough Pain Discharge Medication List ALPRAZolam [Xanax] 0.25 mg PO BID PRN #10 tab 10/09/21 [Rx] Aspirin 81 mg PO DAILY 10/09/21 [Rx] Atorvastatin [Lipitor] 40 mg PO HS tab 10/09/21 [Rx] Clopidogrel [Plavix] 75 mg PO DAILY tab 10/09/21 [Rx] Furosemide [Lasix] 20 mg PO BID tab 10/09/21 [Rx] Nystatin 100,000 Unit/gm Powd [Mycostatin Powder] 1 applic TOPICAL BID 10/09/21 [Rx] traMADol HCl [Ultram] 50 mg PO QID PRN #20 tab 10/09/21 [Rx] Follow up Appointment(s)/Referral(s): Micah Chiang MD [STAFF PHYSICIAN] - 3 Weeks Teofilo Esposito MD [REFERRING] - 1 Week Juan C Lim MD [STAFF PHYSICIAN] - 3 Days Discharge Disposition: TRANSFER TO SNF/ECF
[2021-10-09] MEDS: HYDROcodone/APAP 7.5-325MG 1 EACH TAB PO PRN (20:15)
[2021-10-09] MEDS: ATORVASTATIN 40 MG TAB PO SCH (20:17)
[2021-10-10] MEDS: HYDROcodone/APAP 7.5-325MG 1 EACH TAB PO PRN (09:18)
[2021-10-10] MEDS: ALPRAZolam 0.25 MG TAB PO PRN (09:18)
[2021-10-10] MEDS: ASPIRIN 81 MG PO SCH (10:14)
[2021-10-10] MEDS: FUROSEMIDE 20 MG TAB PO SCH (10:14)
[2021-10-10] MEDS: CLOPIDOGREL 75 MG TAB PO SCH (10:14)
[2021-10-10] MEDS: LOSARTAN 50 MG TAB PO SCH (10:15)
[2021-10-10] MEDS: HEPARIN SODIUM,PORCINE/PF 5,000 UNIT/0.5 ML SYRINGE SQ SCH (10:15)
[2021-10-10] MEDS: PANTOPRAZOLE 40 MG/10 ML VIAL IVP SCH ×2 (10:15→11:02)
[2021-10-10] MEDS: NYSTATIN 100,000 UNIT/GM POWD 15 GM TOPICAL SCH (10:16)
[2021-10-10] MEDS ORDERED: PANTOPRAZOLE 40 MG TABLET PO STA (11:02)
[2021-10-10 11:57] VITALS: BP 133/63; PULSE 74; RESP 20; TEMP 97.8
--- NOTE | 2021-10-10 15:01 | P.DS ---
Providers Date of admission: 10/04/21 19:41 Attending physician: Gil Cervantes Consults: 10/04/21 19:42 Consult Physician Routine Consulting Provider: Ish Quinones Consult Reason/Comments: cva with tpa Do you want consulting provider notified?: Already Contacted Consult Physician Routine Consulting Provider: Eduard Barron Consult Reason/Comments: CVA with TPA Do you want consulting provider notified?: Already Contacted 10/06/21 08:16 Consult Physician Routine Consulting Provider: Micah Chiang Consult Reason/Comments: NAVDEEP. Stroke multiple territories Right hemisphere Do you want consulting provider notified?: Yes Primary care physician: [facility] Course: Final Diagnosis Cerebral Vascular Accident involving the left side of the body and right cerebral hemorrhage, patient received TPA with resolution of symptoms. Nephrolisthiasis, possible; patient likely passed the stone as right flank pain is improving - Pt has history of kidney stones Morbid obesity Chronic venous insufficiency of lower extremity without evidence of Congestive Heart Failure Hypertension Dsicharge Disposition Patient stable for discharge to rehab today, alert and oriented. Hospital Course This is a pleasant 74-year-old presents the hospital with complaints of numbness and tingling in the left upper extremity and lower extremity with weakness. Patient did receive TPA and was evaluated in the ICU with resolution of symptoms. She does have chronic edema in her lower extremities due to chronic venous insufficiency she did take Lasix and she quit because it's not working. Patient denied any fever chills or headache. Patient had a CT of the head and CT angiography of the head which showed chronic small vessel ischemia without any acute intracranial abnormality. There were no speech or vision abnormalities. Neurology was consulted this admission. MRI showed multiple areas in the lateral right thalamus medial posterior right temporal lobe, insular cortex, right occipital lobe which was concerning for embolic stroke. Patient underwent NAVDEEP which did not show any ventricular thrombus. Patient also this admission complaining of some right flank pain KUB x-ray did not show any stone however patient feels that she may have passed the stone. She is on oral Lasix 20 mg daily which was increased to twice a day. She was also started on nystatin this admission for a candidal intertrigo. Numbness and tingling continued to improve this admission. Labs at admission showed white count 7.6, hemoglobin 17, sodium 139, potassium 4.4, BUN 18, creatinine 0.65, blood sugar 118, A1c 6.2, troponin negative, BNP negative, lipid panel within normal limits, triglycerides 91, cholesterol 166, LDL 89, HDL 57. Vitals have remained stable afebrile, heart rate 74, blood pressure 133/60 97% room air. Patient discharged on baby aspirin, Lasix twice a day, Lipitor 40, Plavix daily with Ultram for pain. 10/10/2021 Patient elevated today sitting up in the chair. She reports continued improvement in her right flank pain. It is not tender to palpation. She denies any dysuria, hematuria, urgency or frequency. Denies any chest pain, shortness of breath. There are no focal neuro deficits. She is alert and oriented 3, facial asymmetry is negative, no slurred speech noted. Labs stable, vital signs stable. Patient is cleared for discharge to rehab today. Lungs are clear to auscultation, S1-S2 auscultated. Please see medication reconciliation for list of current medications. Thank you for allowing us to participate in the care of this patient. Patient Condition at Discharge: Fair Plan - Discharge Summary Discharge Rx Participant: Yes New Discharge Prescriptions: New Aspirin 81 mg PO DAILY Nystatin 100,000 Unit/gm Powd [Mycostatin Powder] 1 applic TOPICAL BID ALPRAZolam [Xanax] 0.25 mg PO BID PRN #10 tab PRN Reason: Anxiety Furosemide [Lasix] 20 mg PO BID tab Atorvastatin [Lipitor] 40 mg PO HS tab Clopidogrel [Plavix] 75 mg PO DAILY tab traMADol HCl [Ultram] 50 mg PO QID PRN #20 tab PRN Reason: Breakthrough Pain Discharge Medication List ALPRAZolam [Xanax] 0.25 mg PO BID PRN #10 tab 10/09/21 [Rx] Aspirin 81 mg PO DAILY 10/09/21 [Rx] Atorvastatin [Lipitor] 40 mg PO HS tab 10/09/21 [Rx] Clopidogrel [Plavix] 75 mg PO DAILY tab 10/09/21 [Rx] Furosemide [Lasix] 20 mg PO BID tab 10/09/21 [Rx] Nystatin 100,000 Unit/gm Powd [Mycostatin Powder] 1 applic TOPICAL BID 10/09/21 [Rx] traMADol HCl [Ultram] 50 mg PO QID PRN #20 tab 10/09/21 [Rx] Follow up Appointment(s)/Referral(s): Micah Chiang MD [STAFF PHYSICIAN] - 3 Weeks Teofilo Esposito MD [REFERRING] - 1 Week Juan C Lim MD [STAFF PHYSICIAN] - 3 Days Ambulatory/Diagnostic Orders: Basic Metabolic Panel [LAB.AMB] Time Frame: 3 Days, Location: None Selected Discharge Disposition: TRANSFER TO SNF/ECF
== END 2021-10-10 13:20 | DRG 62 ==
LOC: EC 18:40 → 2SICU 19:41 → 3SCARD 10-06 15:57
PROVIDERS: ADMIT Hospitalist; ATTEND Hospitalist
PROC: 3E03317 Introduction of Other Thrombolytic into Peripheral Vein, Percutaneous Approach (ICD-10-PCS; principal; 2021-10-04)
PROC: B24BZZ4 Ultrasonography of Heart with Aorta, Transesophageal (ICD-10-PCS; 2021-10-07)
DX: I63.9 Cerebral infarction, unspecified (principal); G81.94 Hemiplegia, unspecified affecting left nondominant side; I25.3 Aneurysm of heart; Z68.43 Body mass index [BMI] 50.0-59.9, adult; I10 Essential (primary) hypertension; B37.2 Candidiasis of skin and nail; E66.01 Morbid (severe) obesity due to excess calories; E87.6 Hypokalemia; N20.0 Calculus of kidney; L30.4 Erythema intertrigo; I08.3 Combined rheumatic disorders of mitral, aortic and tricuspid valves; I71.2 Thoracic aortic aneurysm, without rupture; I87.2 Venous insufficiency (chronic) (peripheral); R29.704 NIHSS score 4; E80.6 Other disorders of bilirubin metabolism; T50.1X5A Adverse effect of loop [high-ceiling] diuretics, initial encounter; Z79.899 Other long term (current) drug therapy; Z87.442 Personal history of urinary calculi; Z90.49 Acquired absence of other specified parts of digestive tract; Z20.822 Contact with and (suspected) exposure to COVID-19
CPT/HCPCS: 36415; 70450; 70496; 70498; 70551; 71045; 74018; 80048; 80053; 80061; 81001; 83036; 83880; 84484; 85025; 85610; 85730; 87635; 93005; 93306; 93312; 93320; 93325; 96365; 99291